=== PATIENT | female | born 1990 | race Caucasian/White ===

== ENCOUNTER 2017-03-22 20:56 | Emergency (ER) | payer OTHER ==
[~2017-03-22] VITALS: Ht 157.5 cm; Wt 86.7 kg
[2017-03-22] MEDS ORDERED: ONDANSETRON ODT 4 MG TAB.RAPDIS ONE (21:01)
[2017-03-22] MEDS ORDERED: 0.9 % SODIUM CHLORIDE 10 ML DISP.SYRIN. IV PRN (21:15)
[2017-03-22] MEDS ORDERED: KETOROLAC 30 MG/ML VIAL. IV ONE (21:30)
[2017-03-22] MEDS ORDERED: IV NORMAL SALINE 1,000ML 1,000 ML IV SCH (21:30)
[2017-03-22] MEDS ORDERED: ONDANSETRON PF 4 MG/2 ML VIAL. IV ONE (21:30)
[2017-03-22] MEDS ORDERED: DIPHENOXYLATE/ATROPINE TABLET. PO ONE (21:30)
[2017-03-22 21:48] LABS: BASO % 0 % (0-3); EOS # 0.1 x10^3/uL (0.0-0.7); EOS % 1 % (0-3); HEMATOCRIT 39.5 % (36.0-47.0); HEMOGLOBIN 13.8 g/dL (12.0-15.5); LYMPH # 3.5 x10^3/uL (1.0-4.8); LYMPH % 37 % (24-48); MEAN CORPUSCULAR HEMOGLOBIN 31 pg (25-35); MEAN CORPUSCULAR HGB CONC 35 g/dL (31-37); MEAN CORPUSCULAR VOLUME 89 fL (79-100); MONO # 0.5 x10^3/uL (0.0-1.1); MONO % 5 % (0-9); NEUT # 5.3 x10^3uL (1.8-7.7); NEUT % 56 % (31-73); PLATELET COUNT 155 x10^3/uL (140-400); RED BLOOD COUNT 4.44 x10^6/uL (3.50-5.40); RED CELL DISTRIBUTION WIDTH 14.9 % (11.5-14.5); WHITE BLOOD COUNT 9.5 x10^3/uL (4.0-11.0)
[2017-03-22 21:59] LABS: BILIRUBIN,URINE NEG (NEG); CLARITY,URINE HAZY; COLOR,URINE YELLOW; GLUCOSE,URINE NEG (NEG)
[2017-03-22 22:00] LABS: BACTERIA,URINE FEW /HPF (0-FEW); NITRITE,URINE NEG (NEG); UROBILINOGEN,URINE 0.2 mg/dL (0.2 mg/dL); WBC,URINE RARE /HPF (0-4)
[2017-03-22] MEDS ORDERED: ONDANSETRON ODT 4 MG TAB.RAPDIS PO ONE (22:00)
[2017-03-22 22:01] LABS: SQUAMOUS EPITHELIAL CELL,UR FEW /LPF; U PREG PATIENT NEGATIVE (NEG)
--- NOTE | 2017-03-22 22:03 | PHYS DOC ---
Past History Past Medical History: Anxiety, Asthma, Bipolar, GERD, Seizure Past Surgical History: No Surgical History Alcohol Use: Occasionally Drug Use: None Adult General Chief Complaint Chief Complaint: NAUSEA/VOMITING/DIARRHEA HPI HPI This is a pleasant 26-year-old female with history of bipolar disorder and anxiety and reflux as well as ovarian cyst who presents with 2 days of nausea vomiting or loose stool. She is a who believes she might be today with a positive test at home who presents with nonbilious nonbloody vomiting sore breasts and loose diarrheal stool. She is also concerned with the pain she is developed in the right lower abdomen. With her history of. Ovarian Pathology she is worried that she have another ovarian cyst causing her symptoms. He denies any trauma, denies relatively country, or recent antibiotic use. Patient does admit she's had low-grade fever to 101.7 taken at home orally she has taken some Tylenol orally to help treat her symptoms. Pain is moderate about 4 or 5 of 10 in the right lower quadrant. This is reminiscent of her prior expenses with her ovarian pathology. Review of Systems Review of Systems Constitutional: sHe has had a low-grade fever. Eyes: Denies change in visual acuity, redness, or eye pain [] HENT: Denies nasal congestion or sore throat [] Respiratory: Denies cough or shortness of breath [] Cardiovascular: No additional information not addressed in HPI [] GI: Legs of abdominal pain nausea without vomiting but she has had diarrhea without blood in her stool. : Denies dysuria or hematuria [] Musculoskeletal: Denies back pain or joint pain [] Integument: Denies rash or skin lesions [] Neurologic: Denies headache, focal weakness or sensory changes [] Endocrine: Denies polyuria or polydipsia [] Current Medications Current Medications Current Medications Medications (Trade) Dose Ordered Sig/Silvana Start Time Stop Time Status Last Admin Dose Admin Diphenoxylate HCl/ Atropine (Lomotil) 2 tab 1X ONCE 03/22/17 21:30 03/22/17 21:31 DC 03/22/17 21:30 2 TAB Ketorolac Tromethamine (Toradol) 30 mg 1X ONCE 03/22/17 21:30 03/22/17 21:31 DC 03/22/17 21:30 30 MG Ondansetron HCl (Zofran Odt) 4 mg 1X ONCE 03/22/17 22:00 03/22/17 22:01 03/22/17 21:31 4 MG Ondansetron HCl (Zofran) 4 mg 1X ONCE 03/22/17 21:30 03/22/17 21:31 DC 03/22/17 21:29 4 MG Sodium Chloride (Normal Saline Flush) 10 ml QSHIFT PRN 03/22/17 21:15 Allergies Allergies Allergies Coded Allergies Type Severity Reaction Last Updated Verified Penicillins Allergy Intermediate 03/22/17 Yes aspirin Allergy Intermediate 03/22/17 Yes Physical Exam Physical Exam Vital signs contained in the chart and recorded they're within normal limits. Constitutional: Well developed, well nourished, no acute distress, non-toxic appearance. [] HENT: Normocephalic, atraumatic, bilateral external ears normal, oropharynx moist, no oral exudates, nose normal. [] Eyes: PERRLA, EOMI, conjunctiva normal, no discharge. [] Neck: Normal range of motion, no tenderness, supple, no stridor. [] Cardiovascular:Heart rate regular rhythm, no murmur [] Lungs & Thorax: Bilateral breath sounds clear to auscultation [] Abdomen: She has mild tenderness to palpation in the right lower quadrant with no voluntary guarding, no rebound, or organomegaly. Skin: Warm, dry, no erythema, no rash. [] Back: No tenderness, no CVA tenderness. [] Extremities: No tenderness, no cyanosis, no clubbing, ROM intact, no edema. [] Neurologic: Alert and oriented X 3, normal motor function, normal sensory function, no focal deficits noted. [] Psychologic: Affect normal, judgement normal, mood normal. [] Current Patient Data Vital Signs Vital Signs Date Time Temp Pulse Resp B/P (MAP) Pulse Ox O2 Delivery O2 Flow Rate FiO2 03/22/17 20:56 98.2 88 16 98 Lab Results Laboratory Tests Test 03/22/17 21:20 White Blood Count 9.5 x10^3/uL (4.0-11.0) Red Blood Count 4.44 x10^6/uL (3.50-5.40) Hemoglobin 13.8 g/dL (12.0-15.5) Hematocrit 39.5 % (36.0-47.0) Mean Corpuscular Volume 89 fL (79-100) Mean Corpuscular Hemoglobin 31 pg (25-35) Mean Corpuscular Hemoglobin Concent 35 g/dL (31-37) Red Cell Distribution Width 14.9 % (11.5-14.5) H Platelet Count 155 x10^3/uL (140-400) Neutrophils (%) (Auto) 56 % (31-73) Lymphocytes (%) (Auto) 37 % (24-48) Monocytes (%) (Auto) 5 % (0-9) Eosinophils (%) (Auto) 1 % (0-3) Basophils (%) (Auto) 0 % (0-3) Neutrophils # (Auto) 5.3 x10^3uL (1.8-7.7) Lymphocytes # (Auto) 3.5 x10^3/uL (1.0-4.8) Monocytes # (Auto) 0.5 x10^3/uL (0.0-1.1) Eosinophils # (Auto) 0.1 x10^3/uL (0.0-0.7) Basophils # (Auto) 0.0 x10^3/uL (0.0-0.2) EKG EKG [] Radiology/Procedures Radiology/Procedures [] IMAGING REPORT Signed PATIENT: GURPREET WELDON ACCOUNT: [id number] : 1990 LOCATION: ER AGE: 26 SEX: F EXAM STATUS: PRE ER ORD. PHYSICIAN: PAT HUBER MD REASON: right lower quadrant abdominal pain PROCEDURE: CT ABD PELV W/ IV CONTRST ONLY CT abdomen and pelvis with contrast Clinical Indication: Right lower quadrant abdominal pain, diarrhea, nausea, fever COMPARISON: None. TECHNIQUE: Multiple contiguous axial images were obtained throughout the abdomen, and pelvis with the use of IV contrast. Axial images were reformatted into coronal and sagittal planes. 75 mL Omnipaque 300 was administered. Abdomen findings: Cholecystectomy. The liver, spleen, pancreas, and adrenal glands are unremarkable. The kidneys are unremarkable. There is no significant mesenteric or retroperitoneal adenopathy identified. There is no evidence of free intraperitoneal fluid or pneumoperitoneum. Visualized portions of the bowel are grossly unremarkable. The appendix is not identified with certainty. No lytic or sclerotic osseous lesions are identified. Pelvis findings: The urinary bladder is decompressed limiting evaluation. Small amount of endometrial canal and pelvic free fluid is likely physiologic given patient's age. Bilateral ovarian small cysts are likely physiologic. No significant iliac or inguinal adenopathy is identified. No lytic or sclerotic osseous lesions are identified. IMPRESSION: 1. Small amount of endometrial canal and pelvic free fluid is likely physiologic given patient's age. 2. Bilateral ovarian small cysts are likely also physiologic. 3. No other acute pathology identified. PQRS Compliance Statement: One or more of the following individualized dose reduction techniques were utilized for this examination: 1. Automated exposure control 2. Adjustment of the mA and/or kV according to patient size 3. Use of iterative reconstruction technique CT Abdomen; CT Pelvis without contrast Electronically signed by: Lars Norman MD (03/22/2017 11:04 PM) [facility] DICTATED AND SIGNED BY: LARS NORMAN MD DATE: 03/22/17 2244 CC: PAT HUBER MD ~ Course & Med Decision Making Course & Med Decision Making Pertinent Labs and Imaging studies reviewed. (See chart for details) Patient has a negative hCG test. Patient is resting comfortably waiting for her CT scan come back.Patient tells me that their symptoms given during CC are improved. We reviewed labs at bedside. Patient feels better with the antiemetics and Toradol given. [] Time is now 10:15 PM patient's CBC is normal patient's H&H is normal patient's white count is normal lipase is normal, patient's urine printed test is negative patient's CMP is normal awaiting CT abdomen and pelvis at this time Laboratory Tests Test 03/22/17 21:20 White Blood Count 9.5 x10^3/uL (4.0-11.0) Red Blood Count 4.44 x10^6/uL (3.50-5.40) Hemoglobin 13.8 g/dL (12.0-15.5) Hematocrit 39.5 % (36.0-47.0) Mean Corpuscular Volume 89 fL (79-100) Mean Corpuscular Hemoglobin 31 pg (25-35) Mean Corpuscular Hemoglobin Concent 35 g/dL (31-37) Red Cell Distribution Width 14.9 % (11.5-14.5) H Platelet Count 155 x10^3/uL (140-400) Neutrophils (%) (Auto) 56 % (31-73) Lymphocytes (%) (Auto) 37 % (24-48) Monocytes (%) (Auto) 5 % (0-9) Eosinophils (%) (Auto) 1 % (0-3) Basophils (%) (Auto) 0 % (0-3) Neutrophils # (Auto) 5.3 x10^3uL (1.8-7.7) Lymphocytes # (Auto) 3.5 x10^3/uL (1.0-4.8) Monocytes # (Auto) 0.5 x10^3/uL (0.0-1.1) Eosinophils # (Auto) 0.1 x10^3/uL (0.0-0.7) Basophils # (Auto) 0.0 x10^3/uL (0.0-0.2) Urine Collection Type Void Urine Color Yellow Urine Clarity Hazy Urine pH 6.0 Urine Specific [place] 1.020 Urine Protein Neg (NEG-TRACE) Urine Glucose (UA) Neg mg/dL (NEG) Urine Ketones (Stick) Neg mg/dL (NEG) Urine Blood Mod (NEG) Urine Nitrite Neg (NEG) Urine Bilirubin Neg (NEG) Urine Urobilinogen Dipstick 0.2 mg/dL (0.2 mg/dL) Urine Leukocyte Esterase Neg (NEG) Urine RBC 3-5 /HPF (0-2) Urine WBC Rare /HPF (0-4) Urine Squamous Epithelial Cells Few /LPF Urine Bacteria Few /HPF (0-FEW) Urine Test Negative (NEG) Sodium Level 138 mmol/L (136-145) Potassium Level 4.1 mmol/L (3.5-5.1) Chloride Level 104 mmol/L (98-107) Carbon Dioxide Level 27 mmol/L (21-32) Anion Gap 7 (6-14) Blood Urea Nitrogen 13 mg/dL (7-20) Creatinine 0.8 mg/dL (0.6-1.0) Estimated GFR (Cockcroft-Gault) 85.4 BUN/Creatinine Ratio 16 (6-20) Glucose Level 99 mg/dL (70-99) Calcium Level 8.6 mg/dL (8.5-10.1) Total Bilirubin 0.3 mg/dL (0.2-1.0) Aspartate Amino Transferase (AST) < 5 U/L (15-37) L Alanine Aminotransferase (ALT) 16 U/L (14-59) Alkaline Phosphatase 60 U/L (46-116) Total Protein 7.4 g/dL (6.4-8.2) Albumin 3.8 g/dL (3.4-5.0) Albumin/Globulin Ratio 1.1 (1.0-1.7) Lipase 205 U/L (73-393) CT scan reveals small ovarian cysts My abdominal pain differential includes but not limited to ectopic , UTI, pyonephritis, cholecystitis, cholelithiasis, pancreatitis, appendicitis, small bowel obstruction, large bowel obstruction, diverticulosis, Diverticulum, intussusception, volvulus, irritable bowel disease, Crohn's or ulcerative colitis, considered upon arrival it is apparent that this patient is having ovarian cyst pain. No evidence of appendicitis at this time. Dragon Disclaimer Dragon Disclaimer This chart was dictated in whole or in part using Voice Recognition software in a busy, high-work load, and often noisy Emergency Department environment. It may contain unintended and wholly unrecognized errors or omissions. Departure Departure: Impression: Primary Impression: Abdominal pain Additional Impression: Ovarian cyst Disposition: 01 HOME, SELF-CARE Condition: IMPROVED Patient Instructions: Abdominal Pain, Ovarian Cyst Additional Instructions: My discharge plan Follow up: In addition patient is asked to followup with their primary doctor, within a week for followup examination and to address patient's ongoing medical conditions. Because patient does not have a regular medical doctor, a local physician Resource Sheet will be provided to establish care primary care. Patient is advised that in the Emergency Department primary complaints are addressed and only in light of known signs and symptoms. Patient should return immediately to the emergency department if new signs and symptoms develop or patient's condition worsens in any way. At time of discharge patient was in stable condition and had verbalized understanding of the discharge instructions. Scripts Ondansetron (ZOFRAN ODT) 8 Mg Tab.rapdis 4 MG PO TID for 5 Days Prov: PAT HUBER MD 03/22/17 Naproxen Sodium (NAPROXEN SODIUM) 275 Mg Tablet 275 MG PO BID for 7 Days, #14 TAB Prov: PAT HUBER MD 03/22/17 Problem Qualifiers PAT HUBER MD Mar 22, 2017 22:03
[2017-03-22 22:04] LABS: ALBUMIN 3.8 g/dL (3.4-5.0); ALBUMIN/GLOBULIN RATIO 1.1 (1.0-1.7); ALK PHOS 60 U/L (46-116); ALT (SGPT) 16 U/L (14-59); ANION GAP 7 (6-14); AST (SGOT) < 5 U/L (15-37); BLOOD UREA NITROGEN 13 mg/dL (7-20); BUN/CREATININE RATIO 16 (6-20); CALCIUM 8.6 mg/dL (8.5-10.1); CARBON DIOXIDE 27 mmol/L (21-32); CHLORIDE 104 mmol/L (98-107); CREATININE 0.8 mg/dL (0.6-1.0); GFR 85.4; GLUCOSE 99 mg/dL (70-99); LIPASE 205 U/L (73-393); POTASSIUM 4.1 mmol/L (3.5-5.1); SODIUM 138 mmol/L (136-145); TOTAL BILIRUBIN 0.3 mg/dL (0.2-1.0); TOTAL PROTEIN 7.4 g/dL (6.4-8.2)
[2017-03-22] MEDS ORDERED: CONTRAST GIVEN MC PRN (22:15)
[2017-03-22] MEDS ORDERED: IOHEXOL 300 MG/ML 75 ML VIAL. IV ONE (22:30)
[2017-03-22 23:10] VITALS: BP 100/60
--- NOTE | 2017-03-22 23:12 | RAD ---
CT abdomen and pelvis with contrast Clinical Indication: Right lower quadrant abdominal pain, diarrhea, nausea, fever COMPARISON: None. TECHNIQUE: Multiple contiguous axial images were obtained throughout the abdomen, and pelvis with the use of IV contrast. Axial images were reformatted into coronal and sagittal planes. 75 mL Omnipaque 300 was administered. Abdomen findings: Cholecystectomy. The liver, spleen, pancreas, and adrenal glands are unremarkable. The kidneys are unremarkable. There is no significant mesenteric or retroperitoneal adenopathy identified. There is no evidence of free intraperitoneal fluid or pneumoperitoneum. Visualized portions of the bowel are grossly unremarkable. The appendix is not identified with certainty. No lytic or sclerotic osseous lesions are identified. Pelvis findings: The urinary bladder is decompressed limiting evaluation. Small amount of endometrial canal and pelvic free fluid is likely physiologic given patient's age. Bilateral ovarian small cysts are likely physiologic. No significant iliac or inguinal adenopathy is identified. No lytic or sclerotic osseous lesions are identified. IMPRESSION: 1. Small amount of endometrial canal and pelvic free fluid is likely physiologic given patient's age. 2. Bilateral ovarian small cysts are likely also physiologic. 3. No other acute pathology identified. PQRS Compliance Statement: One or more of the following individualized dose reduction techniques were utilized for this examination: 1. Automated exposure control 2. Adjustment of the mA and/or kV according to patient size 3. Use of iterative reconstruction technique CT Abdomen; CT Pelvis without contrast Electronically signed by: Lars Bautista MD (03/22/2017 11:04 PM) [facility]
[2017-03-22] MEDS ORDERED: ONDA8TAB12 PO (23:23)
[2017-03-22] MEDS ORDERED: NAPR275T59 PO (23:23)
== END 2017-03-22 23:28 | disposition home or self-care (01) ==
LOC: ER 20:56
DX: N83.201 Unspecified ovarian cyst, right side (principal); J45.909 Unspecified asthma, uncomplicated; K21.9 Gastro-esophageal reflux disease without esophagitis; F31.9 Bipolar disorder, unspecified; Z88.0 Allergy status to penicillin; Z88.6 Allergy status to analgesic agent
CPT/HCPCS: 36415; 74177; 80053; 81001; 81025; 83690; 85025; 96361; 96374; 96375; 99285; J1885; J2405; Q0162; Q9967; J7030

== ENCOUNTER 2017-04-16 15:10 | Emergency (ER) | payer OTHER ==
[~2017-04-16] VITALS: Ht 157.5 cm; Wt 86.2 kg
[~2017-04-16 15:10] MED LIST: NAPR275T59 PO; ONDA8TAB12 PO
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
[2017-04-16] MEDS ORDERED: HYDR-971 PO (16:12)
[2017-04-16] MEDS ORDERED: HYDROcodone/APAP 5/325MG 1 TAB TABLET PO ONE (16:15)
[2017-04-16] MEDS ORDERED: ONDANSETRON ODT 4 MG TAB.RAPDIS ONE (16:15)
[2017-04-16 16:22] VITALS: BP 106/67
[2017-04-16] MEDS ORDERED: ONDANSETRON ODT 4 MG TAB.RAPDIS PO ONE (16:30)
== END 2017-04-16 16:23 | disposition home or self-care (01) ==
LOC: ER 15:10
DX: M54.2 Cervicalgia (principal); S80.812A Abrasion, left lower leg, initial encounter; J45.909 Unspecified asthma, uncomplicated; K21.9 Gastro-esophageal reflux disease without esophagitis; Z88.0 Allergy status to penicillin; Z88.6 Allergy status to analgesic agent; V43.52XA Car driver injured in collision with other type car in traffic accident, initial encounter; Y93.89 Activity, other specified; Y99.8 Other external cause status; Y92.488 Other paved roadways as the place of occurrence of the external cause
CPT/HCPCS: 70450; 72125; 99284; Q0162

== ENCOUNTER 2017-05-07 16:46 | Emergency (ER) | payer OTHER ==
[~2017-05-07] VITALS: Ht 167.6 cm; Wt 108.9 kg
[~2017-05-07 16:46] MED LIST changes: +HYDR-971 PO
--- NOTE | 2017-05-07 16:59 | PHYS DOC ---
Past History Past Medical History: Asthma, Seizure Past Surgical History: Cholecystectomy Alcohol Use: None Drug Use: None Adult General Chief Complaint Chief Complaint: ABDOMINAL PAIN HPI HPI Patient is a 26 year old female who presents with right lower quadrant pain for last 3 days. She states his been getting worse over the last several days. She states she's felt very nauseated but has not vomited. She denies any constipation or diarrhea. She states she's had 4 bowel movements today which is normal for her. She has a history of ovarian cysts but denies any suprapubic pain or discomfort. She denies any vaginal bleeding. She states that she's had 2 diaz rings placed secondary to her ovarian cysts and states this pain is similar to her menstrual cramp pains of which the Diaz rings are supposed to be helping but aren't. She has had her gallbladder removed about 6 months ago. She states when she twists and turns her pain is made worse but even when she is laying still is still there at baseline. Review of Systems Review of Systems Constitutional: Denies fever or chills [] Eyes: Denies change in visual acuity, redness, or eye pain [] HENT: Denies nasal congestion or sore throat [] Respiratory: Denies cough or shortness of breath [] Cardiovascular: No additional information not addressed in HPI [] GI: Positive for abdominal pain,Denies nausea, vomiting, bloody stools or diarrhea [] : Denies dysuria or hematuria [] Musculoskeletal: Denies back pain or joint pain [] Integument: Denies rash or skin lesions [] Neurologic: Denies headache, focal weakness or sensory changes [] Endocrine: Denies polyuria or polydipsia [] Allergies Allergies Allergies Coded Allergies Type Severity Reaction Last Updated Verified Penicillins Allergy Intermediate 04/16/17 Yes aspirin Allergy Intermediate 03/22/17 Yes Physical Exam Physical Exam Constitutional: Well developed, well nourished, no acute distress, non-toxic appearance. [] HENT: Normocephalic, atraumatic, bilateral external ears normal, oropharynx moist, no oral exudates, nose normal. [] Eyes: PERRLA, EOMI, conjunctiva normal, no discharge. [] Neck: Normal range of motion, no tenderness, supple, no stridor. [] Cardiovascular:Heart rate regular rhythm, no murmur [] Lungs & Thorax: Bilateral breath sounds clear to auscultation [] Abdomen: Bowel sounds hypoactive, tender to palpation right lower quadrant with voluntary guarding, no masses, no pulsatile masses. [] Skin: Warm, dry, no erythema, no rash. [] Back: No tenderness, no CVA tenderness. [] Extremities: No tenderness, no cyanosis, no clubbing, ROM intact, no edema. [] Neurologic: Alert and oriented X 3, normal motor function, normal sensory function, no focal deficits noted. [] Psychologic: Affect normal, judgement normal, mood normal. [] EKG EKG [] Radiology/Procedures Radiology/Procedures [CT abdomen: No acute intra-abdominal process. Pelvic US: small amount of free fluid in pelvis, good blood flow to both ovaries. ][] Impressions: Abdominal pain Course & Med Decision Making Course & Med Decision Making Pertinent Labs and Imaging studies reviewed. (See chart for details) Patient presents with abdominal pain and right lower quadrant. CT scan, ultrasound and labs are pending at this time. Patient is being checked out to Dr. Pete for final disposition. Patient improved with treatment. Imaging and labs reviewed and reassuring. We will treat supportively with PCP/SR. MEDIA MANAGER follow-up. Return precautions reviewed. Dragon Disclaimer Dragon Disclaimer This chart was dictated in whole or in part using Voice Recognition software in a busy, high-work load, and often noisy Emergency Department environment. It may contain unintended and wholly unrecognized errors or omissions. Departure Departure: Impression: Primary Impression: Abdominal pain Disposition: HOME, SELF-CARE Condition: GOOD Referrals: WILLIE MANRIQUEZ MD (PCP) RATNA HANKS MD May 07, 2017 16:59 ARF PETE DO May 08, 2017 03:48
[2017-05-07] MEDS ORDERED: MORPHINE SULFATE 2 MG/ML DISP.SYRIN. IV/SQ PRN (17:15)
[2017-05-07] MEDS ORDERED: ONDANSETRON PF 4 MG/2 ML VIAL. IV ONE (17:30)
[2017-05-07 17:42] LABS: BASO % 0 % (0-3); EOS # 0.1 x10^3/uL (0.0-0.7); EOS % 1 % (0-3); HEMATOCRIT 39.1 % (36.0-47.0); HEMOGLOBIN 13.5 g/dL (12.0-15.5); LYMPH # 3.4 x10^3/uL (1.0-4.8); LYMPH % 32 % (24-48); MEAN CORPUSCULAR HEMOGLOBIN 31 pg (25-35); MEAN CORPUSCULAR HGB CONC 35 g/dL (31-37); MEAN CORPUSCULAR VOLUME 90 fL (79-100); MONO # 0.6 x10^3/uL (0.0-1.1); MONO % 6 % (0-9); NEUT # 6.5 x10^3uL (1.8-7.7); NEUT % 61 % (31-73); PLATELET COUNT 178 x10^3/uL (140-400); RED BLOOD COUNT 4.36 x10^6/uL (3.50-5.40); RED CELL DISTRIBUTION WIDTH 14.8 % (11.5-14.5); WHITE BLOOD COUNT 10.7 x10^3/uL (4.0-11.0)
[2017-05-07] MEDS ORDERED: IOHEXOL 300 MG/ML 75 ML VIAL. IV ONE (17:45)
[2017-05-07 17:51] LABS: PREG TEST PT QUAL NEGATIVE (NEG)
[2017-05-07 17:54] LABS: ALBUMIN 4.1 g/dL (3.4-5.0); CREATININE 0.8 mg/dL (0.6-1.0); DIRECT BILIRUBIN 0.1 mg/dL (0.0-0.2); GFR 85.4; POTASSIUM 3.8 mmol/L (3.5-5.1); TOTAL BILIRUBIN 0.4 mg/dL (0.2-1.0); TOTAL PROTEIN 7.4 g/dL (6.4-8.2)
[2017-05-07] MEDS ORDERED: IV NORMAL SALINE 1,000ML 1,000 ML IV ONE (18:00)
[2017-05-07 18:08] VITALS: BP 122/75
[2017-05-07 18:09] LABS: AMPHETAMINE/METHAMPHETAMINE NEG (NEG); BARBITURATES NEG (NEG); BENZODIAZEPINES NEG (NEG); CANNABINOIDS NEG (NEG); COCAINE NEG (NEG); METHADONE NEG (NEG); OPIATES NEG (NEG); PHENCYCLIDINE NEG (NEG)
[2017-05-07 18:19] LABS: BILIRUBIN,URINE NEG (NEG); CLARITY,URINE HAZY; COLOR,URINE YELLOW; GLUCOSE,URINE NEG (NEG); NITRITE,URINE NEG (NEG); UROBILINOGEN,URINE 0.2 mg/dL (0.2 mg/dL)
[2017-05-07 18:20] LABS: BACTERIA,URINE 0 /HPF (0-FEW); SQUAMOUS EPITHELIAL CELL,UR MOD /LPF
--- NOTE | 2017-05-07 18:34 | RAD ---
PQRS Compliance Statement: One or more of the following individualized dose reduction techniques were utilized for this examination: 1. Automated exposure control 2. Adjustment of the mA and/or kV according to patient size 3. Use of iterative reconstruction technique CT ABD PELV W/ IV CONTRST ONLY Clinical Indication: RLQ abdominal pain, hx cholecystectomy Comparison: CT abdomen and pelvis with contrast March 22, 2017. Technique: Helical CT imaging of the abdomen and pelvis is performed after 75 cc Omnipaque 300 IV contrast. Oral contrast not given. Findings: Dome of the liver is excluded. Lung bases clear. Cardiac size normal. Cholecystectomy. Liver, spleen, pancreas, adrenal glands, abdominal aorta, and kidneys are normal. Stomach unremarkable. No dilated small bowel. The appendix is normal. Descending colon is decompressed, limiting evaluation. No colon wall thickening is identified. No abdominal adenopathy or free fluid. There are bilateral ovarian functional cysts. Uterus unremarkable. Question tiny nabothian cysts. There is a contraceptive ring in the vagina. The urinary bladder is normal. Mild pelvic free fluid. No acute bone abnormality. IMPRESSION: 1. The appendix is normal. 2. Bilateral ovary functional cysts. Mild pelvic free fluid. Findings probably physiologic. Electronically signed by: Brennan Ramirez MD (05/07/2017 6:31 PM) [facility]
--- NOTE | 2017-05-07 19:09 | RAD ---
US PELVIS W/TV Clinical Indication: [id number] RLQ pain x's 3 day Comparison: CT abdomen and pelvis with contrast earlier same day. TECHNIQUE: Real-time ultrasound imaging of the pelvis using transabdominal and transvaginal window is performed. Findings: There is pelvic free fluid. The uterus measures 7.2 x 5.2 x 3.8 cm. The uterus is retroverted. No focal abnormality. Nabothian cysts are seen. The endometrial stripe is normal measuring 7 mm. Normal blood flow in the ovaries. There are ovarian follicles. There is dominant right ovary functional cyst measuring up to 2.5 cm. IMPRESSION: 1. Pelvic free fluid is probably physiologic. 2. Nabothian cysts. 3. Normal blood flow in the ovaries. Electronically signed by: Brennan Ramirez MD (05/07/2017 7:06 PM) [facility]
== END 2017-05-07 19:52 | disposition home or self-care (01) ==
LOC: ER 16:46
DX: R10.31 Right lower quadrant pain (principal); R11.0 Nausea; J45.909 Unspecified asthma, uncomplicated; Z90.49 Acquired absence of other specified parts of digestive tract; Z88.0 Allergy status to penicillin; Z88.6 Allergy status to analgesic agent
CPT/HCPCS: 36415; 74177; 76830; 76856; 80048; 80076; 80307; 81001; 83690; 84703; 85025; 96361; 96374; 96375; 99285; J2270; J2405; Q9967; G0479; J7030

== ENCOUNTER 2017-06-10 14:44 | Emergency (ER) | payer OTHER ==
[~2017-06-10] VITALS: Ht 175.3 cm; Wt 102.1 kg
[2017-06-10] MEDS ORDERED: ACETAMINOPHEN 500 MG TABLET PO ONE (15:30)
[2017-06-10] MEDS ORDERED: CEPH-264 PO (15:34)
[2017-06-10] MEDS ORDERED: percogesic PO (15:34)
--- NOTE | 2017-06-10 15:35 | PHYS DOC ---
Past History Past Medical History: Seizure Past Surgical History: Cholecystectomy Smoking: Greater than 1 pack/day Alcohol Use: None Drug Use: None Adult General Chief Complaint Chief Complaint: DENTAL PROBLEM HPI HPI 26-year-old female patient with history of smoking complaining of left lower jaw and tooth pain for the last 1 week that gradually getting force. Patient said the pain is sharp and constant and getting force with eating and drinking and talking. Patient denies fever and chills, recent broken tooth, nausea vomiting. Patient states her last period was less than 1 month ago but she is not sure about . Patient rated her pain 9/10. Review of Systems Review of Systems Constitutional: Denies fever or chills [] Eyes: Denies change in visual acuity, redness, or eye pain [] HENT: Denies nasal congestion or sore throat , reports dental pain[] Respiratory: Denies cough or shortness of breath [] Cardiovascular: No additional information not addressed in HPI [] GI: Denies abdominal pain, nausea, vomiting, bloody stools or diarrhea [] : Denies dysuria or hematuria [] Musculoskeletal: Denies back pain or joint pain [] Integument: Denies rash or skin lesions [] Neurologic: Denies headache, focal weakness or sensory changes [] Endocrine: Denies polyuria or polydipsia [] All other systems were reviewed and found to be within normal limits, except as documented in this note. Current Medications Current Medications Current Medications Medications (Trade) Dose Ordered Sig/Silvana Start Time Stop Time Status Last Admin Dose Admin Acetaminophen (Tylenol) 1,000 mg 1X ONCE 06/10/17 15:30 06/10/17 15:31 Allergies Allergies Allergies Coded Allergies Type Severity Reaction Last Updated Verified Penicillins Allergy Intermediate 04/16/17 Yes aspirin Allergy Intermediate 03/22/17 Yes Physical Exam Physical Exam Constitutional: Well nourished, mild distress, non-toxic appearance. [] HENT: Normocephalic, atraumatic, bilateral external ears normal, oropharynx moist, no oral exudates, nose normal, dental cavity and mild e tenderness in left lower molar #3 without abscess[] Eyes: PERRLA, EOMI, conjunctiva normal, no discharge. [] Neck: Normal range of motion, no tenderness, supple, no stridor. [] Cardiovascular:Heart rate regular rhythm, no murmur [] Lungs & Thorax: Bilateral breath sounds clear to auscultation [] Current Patient Data Vital Signs Vital Signs Date Time Temp Pulse Resp B/P (MAP) Pulse Ox O2 Delivery O2 Flow Rate FiO2 06/10/17 14:50 98.1 85 18 97 Room Air EKG EKG [] Radiology/Procedures Radiology/Procedures [] Course & Med Decision Making Course & Med Decision Making Elevation of patient in ER showed 26-year-old female patient presented to ER with complaining of dental pain for 1 week. Patient had dental cavity and marked tenderness without abscess. Patient states she is not sure about and her last period was less than 1 month ago. Patient treated with Tylenol in ER and plan to discharge home with prescription of Cephalexin and instruction to follow with her dentist. Dragon Disclaimer Dragon Disclaimer This electronic medical record was generated, in whole or in part, using a voice recognition dictation system. Departure Departure: Impression: Primary Impression: Dentalgia Additional Impressions: Dental caries Tobacco abuse counseling Disposition: HOME, SELF-CARE Condition: IMPROVED Referrals: WILLIE MANRIQUEZ MD (PCP) Patient Instructions: Dental Caries Additional Instructions: Follow-up with a dentist in 3-5 days Quit smoking Scripts [percogesic] No Conflict Check TAB PO BID Y for PAIN, #10 Prov: JOEY ROGERS MD 06/10/17 Cephalexin (KEFLEX) 500 Mg Capsule 1 CAP PO TID, #21 CAP Prov: JOEY ROGERS MD 06/10/17 Problem Qualifiers JOEY ROGERS MD Jun 10, 2017 15:35
[2017-06-10 15:40] VITALS: BP 106/60
== END 2017-06-10 15:43 | disposition home or self-care (01) ==
LOC: ER 14:44
DX: K02.9 Dental caries, unspecified (principal); F17.200 Nicotine dependence, unspecified, uncomplicated; Z88.0 Allergy status to penicillin; Z88.6 Allergy status to analgesic agent
CPT/HCPCS: 99283

== ENCOUNTER 2017-07-09 16:01 | Emergency (ER) | payer OTHER ==
[~2017-07-09] VITALS: Ht 157.5 cm; Wt 86.2 kg
[~2017-07-09 16:01] MED LIST changes: +CEPH-264 PO; +percogesic PO
[2017-07-09 16:10] VITALS: BP 114/70
[2017-07-09] MEDS ORDERED: LIDOCAINE 2% VISCOUS 15 ML SOLUTION. SWSW ONE (16:45)
--- NOTE | 2017-07-09 16:50 | PHYS DOC ---
Past History Past Medical History: COPD Past Surgical History: Cholecystectomy Smoking: Greater than 1 pack/day Alcohol Use: None Drug Use: Marijuana Adult General Chief Complaint Chief Complaint: SORE THROAT [facility] 26-year-old female patient complaining of sore throat since yesterday associated with fever up to 102 and nasal congestion and mild cough. Patient complaining of severe pain in her throat without problem with breathing. Review of Systems Review of Systems Constitutional: Reports fever and chills Eyes: Denies change in visual acuity, redness, or eye pain [] HENT: Reports nasal congestion or sore throat[] Respiratory: Reports cough and shortness of breath] Cardiovascular: No additional information not addressed in HPI [] GI: Denies abdominal pain, nausea, vomiting, bloody stools or diarrhea [] : Denies dysuria or hematuria [] Musculoskeletal: Denies back pain or joint pain [] Integument: Denies rash or skin lesions [] Neurologic: Denies headache, focal weakness or sensory changes [] Endocrine: Denies polyuria or polydipsia [] All other systems were reviewed and found to be within normal limits, except as documented in this note. Current Medications Current Medications Current Medications Medications (Trade) Dose Ordered Sig/Silvana Start Time Stop Time Status Last Admin Dose Admin Lidocaine HCl 15 ml 1X ONCE 07/09/17 16:45 07/09/17 16:46 DC Allergies Allergies Allergies Coded Allergies Type Severity Reaction Last Updated Verified Penicillins Allergy Intermediate 04/16/17 Yes aspirin Allergy Intermediate 03/22/17 Yes Physical Exam Physical Exam Constitutional: Well developed, well nourished, mild distress, non-toxic appearance, anxious. [] HENT: Normocephalic, atraumatic, bilateral external ears normal, oropharynx moist, right tonsillar edema and erythema, no oral exudates, nose normal. [] Eyes: PERRLA, EOMI, conjunctiva normal, no discharge. [] Neck: Normal range of motion, no tenderness, supple, no stridor. [] Cardiovascular:Heart rate regular rhythm, no murmur [] Lungs & Thorax: Bilateral breath sounds clear to auscultation [] Abdomen: Bowel sounds normal, soft, no tenderness, no masses, no pulsatile masses. [] Skin: Warm, dry, no erythema, no rash. [] Back: No tenderness, no CVA tenderness. [] Extremities: No tenderness, no cyanosis, no clubbing, ROM intact, no edema. [] Neurologic: Alert and oriented X 3, normal motor function, normal sensory function, no focal deficits noted. [] Psychologic: Affect normal, judgement normal, mood normal. [] Current Patient Data Vital Signs Vital Signs Date Time Temp Pulse Resp B/P (MAP) Pulse Ox O2 Delivery O2 Flow Rate FiO2 07/09/17 16:10 98.4 81 18 98 Room Air EKG EKG [] Radiology/Procedures Radiology/Procedures [] Course & Med Decision Making Course & Med Decision Making Pertinent Labs pending. Patient care transferred to Dr. Marlow at 1800 Patient is a 26-year-old female signed out to me at [address] Rogers. Patient reportedly has had sore throat fever and cough for the past 2 days and was signed out to me as strep and influenza swabs had been ordered and were pending. A KARRI GARRISON arrived to the emergency department and my time was occupied for an extended period. After caring for trauma room I was notified by RN that the patient refused swabs and was no longer in the exam room. Patient apparently left without being fully evaluated and she did have a prolonged ED course due to extremely high patient volume/acuity. Impression: A reported patient with symptoms of possible pharyngitis and influenza left without being seen. Dragon Disclaimer Dragon Disclaimer This electronic medical record was generated, in whole or in part, using a voice recognition dictation system. Departure Referrals: WILLIE MANRIQUEZ MD (PCP) Departure Departure: Referrals: WILLIE MANRIQUEZ MD (PCP) JOEY ROGERS MD Jul 09, 2017 16:50 JOSE MARLOW DO Jul 09, 2017 21:01
== END 2017-07-09 20:05 | disposition left against medical advice (07) ==
LOC: ER 16:01
DX: J02.9 Acute pharyngitis, unspecified (principal); R50.9 Fever, unspecified; R09.81 Nasal congestion; J44.9 Chronic obstructive pulmonary disease, unspecified; F17.210 Nicotine dependence, cigarettes, uncomplicated; F12.10 Cannabis abuse, uncomplicated; Z90.49 Acquired absence of other specified parts of digestive tract; Z88.0 Allergy status to penicillin; Z88.6 Allergy status to analgesic agent
CPT/HCPCS: 87070; 87880; 99283

== ENCOUNTER 2017-07-12 16:59 | Emergency (ER) | payer OTHER ==
[~2017-07-12] VITALS: Ht 157.5 cm; Wt 86.7 kg
[2017-07-12 17:11] VITALS: BP 114/70
[2017-07-12] MEDS ORDERED: IBUPROFEN 800 MG TABLET. PO ONE (17:30)
[2017-07-12] MEDS ORDERED: HYDR-971 PO (17:37)
[2017-07-12] MEDS ORDERED: CEPH-264 PO (17:37)
[2017-07-12] MEDS ORDERED: IBUP800T19 PO (17:37)
--- NOTE | 2017-07-12 17:37 | PHYS DOC ---
Past History Past Medical History: COPD Past Surgical History: Cholecystectomy Smoking: Greater than 1 pack/day Alcohol Use: None Drug Use: Marijuana Adult General Chief Complaint Chief Complaint: EARACHE/EAR PAIN HPI HPI 26-year-old female patient complaining of sore throat and fever up to 102 and earache for the last several days that gradually getting worse. Patient was seen in this emergency room on 07/09/17 but because of long time waiting time left before having any treatment. She was told that her strep test was negative. She denies fever for the last 3 days but complaining of increasing pain in her ear. Review of Systems Review of Systems Constitutional: Reports fever Eyes: Denies change in visual acuity, redness, or eye pain [] HENT: Port nasal congestion and sore throat and earache[] Respiratory: Denies shortness of breath [] Cardiovascular: No additional information not addressed in HPI [] GI: Denies abdominal pain, nausea, vomiting, bloody stools or diarrhea [] : Denies dysuria or hematuria [] Musculoskeletal: Denies back pain or joint pain [] Integument: Denies rash or skin lesions [] Neurologic: Denies headache, focal weakness or sensory changes [] Endocrine: Denies polyuria or polydipsia [] All other systems were reviewed and found to be within normal limits, except as documented in this note. Current Medications Current Medications Current Medications Medications (Trade) Dose Ordered Sig/Silvana Start Time Stop Time Status Last Admin Dose Admin Ibuprofen (Motrin) 800 mg 1X ONCE 07/12/17 17:30 07/12/17 17:31 UNV Allergies Allergies Allergies Coded Allergies Type Severity Reaction Last Updated Verified Penicillins Allergy Intermediate 04/16/17 Yes aspirin Allergy Intermediate 03/22/17 Yes Physical Exam Physical Exam Constitutional: Well developed, well nourished, mild distress, non-toxic appearance, afebrile. [] HENT: Normocephalic, atraumatic, right tympanic membrane erythema and tenderness , bilateral pharyngeal erythema and right pharyngeal exudate, oropharynx moist, nose normal. [] Eyes: PERRLA, EOMI, conjunctiva normal, no discharge. [] Neck: Normal range of motion, no tenderness, supple, no stridor. [] Cardiovascular:Heart rate regular rhythm, no murmur [] Lungs & Thorax: Bilateral breath sounds clear to auscultation [] Abdomen: Bowel sounds normal, soft, no tenderness, no masses, no pulsatile masses. [] Skin: Warm, dry, no erythema, no rash. [] Back: No tenderness, no CVA tenderness. [] Extremities: No tenderness, no cyanosis, no clubbing, ROM intact, no edema. [] Neurologic: Alert and oriented X 3, normal motor function, normal sensory function, no focal deficits noted. [] Psychologic: Affect normal, judgement normal, mood normal. [] EKG EKG [] Radiology/Procedures Radiology/Procedures [] Course & Med Decision Making Course & Med Decision Making Evaluation of patient in ER showed 26-year-old female patient with complaining of sore throat and earache with differential exudates. Patient seen in this emergency room 3 days ago and had negative for sepsis and did not want to have another strep test. She did not want to have Rocephin IM in ER. Plan discharge patient home with diagnosis of acute otitis and acute pharyngitis. Dragon Disclaimer Dragon Disclaimer This electronic medical record was generated, in whole or in part, using a voice recognition dictation system. Departure Departure: Impression: Primary Impression: Acute otitis media Additional Impression: Acute pharyngitis Disposition: HOME, SELF-CARE (At 1735) Condition: IMPROVED Referrals: WILLIE MANRIQUEZ MD (PCP) Patient Instructions: Otitis Media, Adult, Sore Throat Additional Instructions: Drink plenty of liquids Follow-up with your primary care physician in 3-5 days Return to ER if not getting better Scripts Ibuprofen (IBUPROFEN) 800 Mg Tablet 1 TAB PO TID, #30 TAB Prov: JOEY ROGERS MD 07/12/17 Cephalexin (KEFLEX) 500 Mg Capsule 1 CAP PO TID, #30 CAP Prov: JOEY ROGERS MD 07/12/17 Hydrocodone Bit/Acetaminophen (NORCO 5-325 TABLET) 1 Each Tablet 1 TAB PO TID, #12 TAB Prov: JOEY ROGERS MD 07/12/17 Problem Qualifiers JOEY ROGERS MD Jul 12, 2017 17:37
== END 2017-07-12 17:47 | disposition home or self-care (01) ==
LOC: ER 16:59
DX: H66.93 Otitis media, unspecified, bilateral (principal); J02.9 Acute pharyngitis, unspecified; J44.9 Chronic obstructive pulmonary disease, unspecified; F17.200 Nicotine dependence, unspecified, uncomplicated; F12.10 Cannabis abuse, uncomplicated; Z88.0 Allergy status to penicillin; Z88.6 Allergy status to analgesic agent
CPT/HCPCS: 99283

== ENCOUNTER 2017-07-19 23:23 | Emergency (ER) | payer OTHER ==
[~2017-07-19] VITALS: Ht 157.5 cm; Wt 86.7 kg
[~2017-07-19 23:23] MED LIST changes: +IBUP800T19 PO
[2017-07-19 23:26] VITALS: BP 113/60
--- NOTE | 2017-07-20 00:06 | PHYS DOC ---
Past History Past Medical History: No Pertinent History Past Surgical History: Cholecystectomy Smoking: Cigarettes, Greater than 1 pack/day Alcohol Use: None Drug Use: Marijuana Adult General Chief Complaint Chief Complaint: SORE THROAT HPI HPI Patient is a 26 year old female who presents with sore throat. She states the sore throat started in mid June. She has been here twice and had a negative strep culture done. She is on keflex. She states that the throat still hurts. She had a fever initially but none now. No flu vaccine. No travel. Little cough. No vomiting or diarrhea. No rash. Review of Systems Review of Systems Constitutional: Denies fever or chills Eyes: Denies change in visual acuity, redness, or eye pain HENT: Denies nasal congestion; POS sore throat Respiratory: Little cough but no shortness of breath Cardiovascular: No chest pain GI: Denies abdominal pain, nausea, vomiting, bloody stools or diarrhea : Denies dysuria or hematuria Musculoskeletal: Denies back pain or joint pain Integument: Denies rash or skin lesions Neurologic: Denies headache, focal weakness or sensory changes All other systems were reviewed and found to be within normal limits, except as documented in this note. Allergies Allergies Allergies Coded Allergies Type Severity Reaction Last Updated Verified Penicillins Allergy Intermediate 04/16/17 Yes aspirin Allergy Intermediate 03/22/17 Yes Physical Exam Physical Exam Constitutional: Well developed, well nourished, no acute distress, non-toxic appearance. HENT: Normocephalic, atraumatic, tympanic membranes are clear bilaterally bilateral external ears normal, oropharynx moist, hyperemia to posterior pharynx ; no oral exudates or lesions, nose normal. Eyes: PERRLA, EOMI, conjunctiva normal, no discharge. Neck: Normal range of motion, no tenderness, supple, no stridor. Cardiovascular:Heart rate regular rhythm, no murmur Lungs & Thorax: Bilateral breath sounds clear to auscultation Abdomen: Bowel sounds normal, soft, no tenderness, no masses, no pulsatile masses. Skin: Warm, dry, no erythema, no rash. Back: No tenderness, no CVA tenderness. Extremities: No tenderness, no cyanosis, no clubbing, ROM intact, no edema. Neurologic: Alert and oriented X 3, normal motor function, normal sensory function, no focal deficits noted. Psychologic: Affect normal, judgement normal, mood normal. Current Patient Data Vital Signs 113/60, 75, sat 100%, RR 20, T 97.7 Lab Results Laboratory Tests Test 07/19/17 23:55 Influenza Type A (Rapid) Negative (NEGATIVE) Influenza Type B (Rapid) Negative (NEGATIVE) Course & Med Decision Making Course & Med Decision Making Evaluated patient and reviewed recent visits. Influenza sent and monospot. Her throat has the appearance of monilial infection. At 0110 AM:Influenza is negative but lab having difficulty running the monospot due to a reagent difficulty. Will discharge patient with followup. Will place on diflucan (dosed here). If symptoms persist she needs follow up with ENT. I have spoken with the patient and/or caregivers. I have explained the patient' s condition, diagnosis and treatment plan based on the information available to me at this time. I have answered the patient's and/or caregiver's questions and addressed any concerns. The patient and/or caregivers have as good an understanding of the patient's diagnosis, condition and treatment plan as can be expected at this point. The patient's condition is stable and appropriate for discharge from the emergency department. The patient will pursue further outpatient evaluation with the primary care physician or other designated or consulting physician as outlined in the discharge instructions. The patient and/or caregivers are agreeable to this plan of care and follow-up instructions have been explained in detail. The patient and/or caregivers have received these instructions in written format and have expressed an understanding of the discharge instructions. The patient and/or caregivers are aware that any significant change in condition or worsening of symptoms should prompt an immediate return to this or the closest emergency department or a call to 911. Dami Disclaimer Dragon Disclaimer This electronic medical record was generated, in whole or in part, using a voice recognition dictation system. Departure Departure: Impression: Primary Impression: Sore throat Additional Impression: Moniliasis of mouth Disposition: HOME, SELF-CARE Condition: STABLE Referrals: WILLIE MANRIQUEZ MD (PCP) Patient Instructions: Sore Throat Additional Instructions: YOU HAVE HAD COMPLAINTS FOR APPROX ONE MONTH. YOUR STREP SCREEN AND CULTURE WERE NEGATIVE, YOUR INFLUENZA NEGATIVE. THE MONOSPOT IS PENDING (LAB IS HAVING TROUBLE WITH THE MACHINE). YOU MAY HAVE A YEAST INFECTION IN YOUR THROAT YOU HAVE BEEN ON ANTIBIOTICS. YOU WERE A DOSE OF YEAST MEDICATION HERE TO SEE IF THAT HELPS. IF YOUR SYMPTOMS PERSIST YOU NEED EVALUATION BY AN ENT. CALL [facility] REGARDING AN ENT APPOINTMENT Problem Qualifiers OLAF MANN MD Jul 20, 2017 00:06
[2017-07-20 00:55] LABS: INFLUENZA A PATIENT NEGATIVE (NEGATIVE); INFLUENZA B PATIENT NEGATIVE (NEGATIVE)
[2017-07-20] MEDS ORDERED: FLUCONAZOLE 100 MG TABLET. ONE (01:27)
[2017-07-20 01:30] LABS: MONONUCLEOSIS PATIENT NEGATIVE (NEGATIVE)
[2017-07-20] MEDS ORDERED: FLUCONAZOLE 100 MG TABLET. PO ONE (01:30)
== END 2017-07-20 01:30 | disposition home or self-care (01) ==
LOC: ER 23:23
DX: J02.9 Acute pharyngitis, unspecified (principal); B37.0 Candidal stomatitis; F17.210 Nicotine dependence, cigarettes, uncomplicated; F12.10 Cannabis abuse, uncomplicated; Z88.6 Allergy status to analgesic agent; Z88.0 Allergy status to penicillin
CPT/HCPCS: 86308; 87804; 99284

== ENCOUNTER 2017-07-29 19:33 | Emergency (ER) | payer OTHER ==
[~2017-07-29] VITALS: Ht 157.5 cm; Wt 82.1 kg
--- NOTE | 2017-07-29 19:50 | ED.ADGEN ---
Past History Past Medical History: No Pertinent History Past Surgical History: Cholecystectomy Smoking: Cigarettes, Greater than 1 pack/day Alcohol Use: None Drug Use: Marijuana Adult General Chief Complaint Chief Complaint " I ve been nauseate... nausea and some vomiting.. not right since .. 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 Pt. has been courses of antibiotics for ENT complaints. No recent travel. 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 Pt. states she feel some nausea like . Pt. has been gravid x 5, 3 live births and 2 miscarries. No hx. of bad food. No hx immunosuppression. Pt. normally follows with Dr. Quinonez. Reportedly prior flu and strept. are negative. Review of Systems Review of Systems Constitutional: Denies fever or chills [] Eyes: Denies change in visual acuity, redness, or eye pain [] HENT: Hx of nasal congestion or sore throat [] Respiratory: Denies cough or shortness of breath [] Cardiovascular: No additional information not addressed in HPI [] GI: Hx of , nausea, vomiting,. Denies bloody stools or diarrhea [] : Denies dysuria or hematuria [] Musculoskeletal: Denies back pain or joint pain [] Integument: Denies rash or skin lesions [] Neurologic: Denies headache, focal weakness or sensory changes [] Endocrine: Denies polyuria or polydipsia [] All other systems were reviewed and found to be within normal limits, except as documented in this note. Family History Family History Non-contributory Current Medications Current Medications Current Medications Medications (Trade) Dose Ordered Sig/Silvana Start Time Stop Time Status Last Admin Dose Admin Famotidine (Pepcid Vial) 20 mg 1X ONCE 07/29/17 20:15 07/29/17 20:16 DC 07/29/17 20:21 20 MG Lactated Ringer's 1,000 ml @ 1,000 mls/hr Q1H 07/29/17 20:00 Ondansetron HCl (Zofran) 8 mg 1X ONCE 07/29/17 20:15 07/29/17 20:16 DC 07/29/17 20:21 8 MG Sodium Chloride 1,000 ml @ 1,000 mls/hr 1X ONCE 07/29/17 21:00 07/29/17 21:59 DC 07/29/17 20:10 1,000 MLS/HR Allergies Allergies Allergies Coded Allergies Type Severity Reaction Last Updated Verified Penicillins Allergy Intermediate 04/16/17 Yes aspirin Allergy Intermediate 03/22/17 Yes Physical Exam Physical Exam Constitutional: , no acute distress, non-toxic appearance. [] HENT: Normocephalic, atraumatic, bilateral external ears normal, oropharynx moist, min. pharyngeal injection, no oral exudates, nose normal. [] Eyes: PERRLA, EOMI, conjunctiva normal, no discharge. [] Neck: Normal range of motion, no tenderness, supple, no stridor. [] Cardiovascular:Heart rate regular rhythm, no murmur [] Lungs & Thorax: Bilateral breath sounds equal scattered wheezes on auscultation [] Abdomen: Bowel sounds normal, soft, no tenderness, no masses, no pulsatile masses. [] Old surgery scars. Skin: Warm, dry, no erythema, no rash. [] Back: No tenderness, no CVA tenderness. [] Extremities: No tenderness, no cyanosis, no clubbing, ROM intact, no edema. [] Neurologic: Alert and oriented X 3, normal motor function, normal sensory function, no focal deficits noted. [] Psychologic: Affect normal, judgement normal, mood normal. [] Current Patient Data Vital Signs Vital Signs Date Time Temp Pulse Resp B/P (MAP) Pulse Ox O2 Delivery O2 Flow Rate FiO2 07/29/17 19:44 98.2 84 16 100 Room Air Lab Results Laboratory Tests Test 07/29/17 20:10 07/29/17 20:15 White Blood Count 9.2 x10^3/uL (4.0-11.0) Red Blood Count 4.06 x10^6/uL (3.50-5.40) Hemoglobin 12.6 g/dL (12.0-15.5) Hematocrit 36.4 % (36.0-47.0) Mean Corpuscular Volume 90 fL (79-100) Mean Corpuscular Hemoglobin 31 pg (25-35) Mean Corpuscular Hemoglobin Concent 35 g/dL (31-37) Red Cell Distribution Width 15.1 % (11.5-14.5) H Platelet Count 202 x10^3/uL (140-400) Neutrophils (%) (Auto) 70 % (31-73) Lymphocytes (%) (Auto) 24 % (24-48) Monocytes (%) (Auto) 5 % (0-9) Eosinophils (%) (Auto) 1 % (0-3) Basophils (%) (Auto) 0 % (0-3) Neutrophils # (Auto) 6.5 x10^3uL (1.8-7.7) Lymphocytes # (Auto) 2.2 x10^3/uL (1.0-4.8) Monocytes # (Auto) 0.5 x10^3/uL (0.0-1.1) Eosinophils # (Auto) 0.1 x10^3/uL (0.0-0.7) Basophils # (Auto) 0.0 x10^3/uL (0.0-0.2) Maternal Serum HCG Beta Subunit < 1 mIU/mL (0-6) Sodium Level 141 mmol/L (136-145) Potassium Level 3.9 mmol/L (3.5-5.1) Chloride Level 104 mmol/L (98-107) Carbon Dioxide Level 27 mmol/L (21-32) Anion Gap 10 (6-14) Blood Urea Nitrogen 9 mg/dL (7-20) Creatinine 0.8 mg/dL (0.6-1.0) Estimated GFR (Cockcroft-Gault) 85.4 Glucose Level 90 mg/dL (70-99) Calcium Level 9.0 mg/dL (8.5-10.1) Total Bilirubin 0.2 mg/dL (0.2-1.0) Direct Bilirubin 0.1 mg/dL (0.0-0.2) Aspartate Amino Transferase (AST) 11 U/L (15-37) L Alanine Aminotransferase (ALT) 14 U/L (14-59) Alkaline Phosphatase 70 U/L (46-116) Troponin I Quantitative < 0.017 ng/mL (0-0.055) Total Protein 7.4 g/dL (6.4-8.2) Albumin 3.5 g/dL (3.4-5.0) Lipase 174 U/L (73-393) Urine Collection Type Unknown Urine Color Yellow Urine Clarity Clear Urine pH 6.5 Urine Specific [place] 1.015 Urine Protein Neg (NEG-TRACE) Urine Glucose (UA) Neg mg/dL (NEG) Urine Ketones (Stick) Neg mg/dL (NEG) Urine Blood Small (NEG) Urine Nitrite Neg (NEG) Urine Bilirubin Neg (NEG) Urine Urobilinogen Dipstick 0.2 mg/dL (0.2 mg/dL) Urine Leukocyte Esterase Neg (NEG) Urine RBC 6-10 /HPF (0-2) Urine WBC 1-4 /HPF (0-4) Urine Squamous Epithelial Cells Many /LPF Urine Bacteria 0 /HPF (0-FEW) Urine Mucus Slight /LPF Urine Opiates Screen Neg (NEG) Urine Methadone Screen Neg (NEG) Urine Barbiturates Neg (NEG) Urine Phencyclidine Screen Neg (NEG) Urine Amphetamine/Methamphetamine Neg (NEG) Urine Benzodiazepines Screen Neg (NEG) Urine Cocaine Screen Neg (NEG) Urine Cannabinoids Screen Neg (NEG) Urine Ethyl Alcohol Neg (NEG) EKG EKG [] Radiology/Procedures Radiology/Procedures My interpretation of acute abdomen film shows no free air under the diaphragm. She has clips from previous gallbladder surgery. There is some isolated bowel loops. But overall pattern is nonspecific.[] Course & Med Decision Making Course & Med Decision Making Pertinent Labs and Imaging studies reviewed. (See chart for details). Keep follow up with ENT and primary. Zofran for nausea and vomiting. Clear fluid diet x 2 days. Must allow bowel rest. [] Final Impression Final Impression 1. Nausea and Vomiting[] 2. Viral Syndrome. Problems: Dragon Disclaimer Dragon Disclaimer This electronic medical record was generated, in whole or in part, using a voice recognition dictation system. RACHEL YANCEY MD Jul 29, 2017 19:50
[2017-07-29] MEDS ORDERED: IV RINGERS SOLUTION,LACTATED 1,000 ML IV SCH (20:00)
[2017-07-29] MEDS ORDERED: FAMOTIDINE 20 MG/2 ML VIAL IVP ONE (20:15)
[2017-07-29] MEDS ORDERED: ONDANSETRON PF 4 MG/2 ML VIAL. IV ONE (20:15)
[2017-07-29 20:36] LABS: BASO % 0 % (0-3); EOS # 0.1 x10^3/uL (0.0-0.7); EOS % 1 % (0-3); HEMATOCRIT 36.4 % (36.0-47.0); HEMOGLOBIN 12.6 g/dL (12.0-15.5); LYMPH # 2.2 x10^3/uL (1.0-4.8); LYMPH % 24 % (24-48); MEAN CORPUSCULAR HEMOGLOBIN 31 pg (25-35); MEAN CORPUSCULAR HGB CONC 35 g/dL (31-37); MEAN CORPUSCULAR VOLUME 90 fL (79-100); MONO # 0.5 x10^3/uL (0.0-1.1); MONO % 5 % (0-9); NEUT # 6.5 x10^3uL (1.8-7.7); NEUT % 70 % (31-73); PLATELET COUNT 202 x10^3/uL (140-400); RED BLOOD COUNT 4.06 x10^6/uL (3.50-5.40); RED CELL DISTRIBUTION WIDTH 15.1 % (11.5-14.5); WHITE BLOOD COUNT 9.2 x10^3/uL (4.0-11.0)
[2017-07-29 20:47] LABS: ALBUMIN 3.5 g/dL (3.4-5.0); CREATININE 0.8 mg/dL (0.6-1.0); DIRECT BILIRUBIN 0.1 mg/dL (0.0-0.2); GFR 85.4; POTASSIUM 3.9 mmol/L (3.5-5.1); TOTAL BILIRUBIN 0.2 mg/dL (0.2-1.0); TOTAL PROTEIN 7.4 g/dL (6.4-8.2)
[2017-07-29] MEDS ORDERED: IV NORMAL SALINE 1,000ML 1,000 ML IV ONE (21:00)
[2017-07-29 21:03] LABS: BACTERIA,URINE 0 /HPF (0-FEW); BILIRUBIN,URINE NEG (NEG); CLARITY,URINE CLEAR; COLOR,URINE YELLOW; GLUCOSE,URINE NEG (NEG); NITRITE,URINE NEG (NEG); SQUAMOUS EPITHELIAL CELL,UR MANY /LPF; UROBILINOGEN,URINE 0.2 mg/dL (0.2 mg/dL)
[2017-07-29 21:10] LABS: AMPHETAMINE/METHAMPHETAMINE NEG (NEG); BARBITURATES NEG (NEG); BENZODIAZEPINES NEG (NEG); CANNABINOIDS NEG (NEG); COCAINE NEG (NEG); METHADONE NEG (NEG); OPIATES NEG (NEG); PHENCYCLIDINE NEG (NEG)
[2017-07-29] MEDS ORDERED: ONDA8TAB12 PO (21:15)
[2017-07-29 22:20] VITALS: BP 94/48
--- NOTE | 2017-07-30 07:07 | RAD ---
Acute abdomen series with chest, 3 views, 07/29/2017: History: Nausea and vomiting Gas is present in large and small bowel without significant bowel distention. A couple of small nonspecific air-fluid levels are seen in the central abdomen. No free air is present in the abdomen. Surgical clips in the right upper quadrant suggest a previous cholecystectomy. There is no evidence of organomegaly or abnormal abdominal calcification. The heart size is normal. The lungs are clear. There is no evidence of pleural fluid. IMPRESSION: 1. Several small air-fluid levels in the central abdomen suggest a mild localized ileus. 2. The abdomen is otherwise unremarkable.
== END 2017-07-29 22:20 | disposition home or self-care (01) ==
LOC: ER 19:33
DX: B34.9 Viral infection, unspecified (principal); F17.210 Nicotine dependence, cigarettes, uncomplicated; F12.10 Cannabis abuse, uncomplicated; Z88.0 Allergy status to penicillin; Z88.6 Allergy status to analgesic agent
CPT/HCPCS: 36415; 74022; 80048; 80076; 80307; 81001; 83690; 84484; 84702; 85025; 96361; 96374; 96375; 99285; J2405; S0028; G0479; J7030

== ENCOUNTER 2017-08-21 20:41 | Emergency (ER) | payer OTHER ==
[~2017-08-21] VITALS: Ht 157.5 cm; Wt 82.1 kg
[2017-08-21 20:41] VITALS: BP 92/63
--- NOTE | 2017-08-21 22:47 | PHYS DOC ---
Text Text Upon arrival to the patient's room, it was noted that the patient was not in her room. The patient did not receive evaluation or treatment by this physician. The patient eloped from the emergency department without notifying staff. DWIGHT SOLIMAN MD Aug 21, 2017 22:46
== END 2017-08-21 22:58 | disposition left against medical advice (07) ==
LOC: ER 20:41
DX: K08.89 Other specified disorders of teeth and supporting structures (principal); Z53.21 Procedure and treatment not carried out due to patient leaving prior to being seen by health care provider

== ENCOUNTER 2017-09-01 18:15 | Emergency (ER) | payer OTHER ==
[~2017-09-01] VITALS: Ht 157.5 cm; Wt 81.6 kg
[2017-09-01] MEDS ORDERED: CLIN300C8 PO (19:29)
--- NOTE | 2017-09-01 19:31 | PHYS DOC ---
General Chief Complaint: FEVER Stated Complaint: FEVER SORE THROAT Time Seen by MD: 18:34 Source: patient Exam Limitations: no limitations Problems: History of Present Illness Initial Comments 26-year-old female to the emergency department with her daughter to be seen also with complaints of cough and fever and sore throat. Mom states that she's had a sore throat for months, says that she's had no new fever chills and dry cough for the past 2 days. Took ibuprofen at 1600 no vomiting or diarrhea. She refuses influenza testing Timing/Duration: other Severity: moderate Modifying Factors: worse with eating Associated Symptoms: cough, fever/chills, malaise, other Allergies: Coded Allergies: Penicillins (Verified Allergy, Intermediate, 04/16/17) aspirin (Verified Allergy, Intermediate, 03/22/17) Past Medical History Medical History: other (asthma, GERD, ovarian cyst, seizures) Surgical History: cholecystectomy Social History Smoker: cigarettes Alcohol: none Drugs: marijuana Review of Systems Constitutional: chills, fever, malaise EENTM: denies ear pain, nose congestion, throat pain, denies throat swelling Respiratory: cough, denies shortness of breath, denies wheezing Cardiovascular: denies chest pain, denies palpitations, denies syncope Gastrointestinal: denies abdominal pain, denies nausea, denies vomiting Musculoskeletal: denies back pain, denies joint swelling, denies neck pain Psychiatric/Neurological: headache, denies numbness, denies paresthesia, denies weakness Hematologic/Lymphatic: denies blood clots, denies easy bleeding, denies easy bruising Physical Exam General Appearance: no apparent distress Eyes: bilateral eye normal inspection, bilateral eye PERRL, bilateral eye EOMI Ear, Nose, Throat: other (right tonsil is 2+ with erythema and exudate, left tonsil is 1+ erythematous airway is patent) Neck: full range of motion, supple, lymphadenopathy (R) Respiratory: normal breath sounds, no respiratory distress Extremities: normal range of motion, non-tender Neurologic/Psychiatric: alert, oriented x 3 Orders, Labs, Meds Strep negative Departure Time of Disposition: 19:30 Disposition: HOME, SELF-CARE Diagnosis: tonsillitis, flulike symptoms Condition: GOOD Patient Instructions: Tonsillitis, [id number] Additional Instructions: Work excuse through September 03. [id number] Tylenol and ibuprofen as needed. Aggressive hydration with Gatorade and water. Prescription: Clindamycin Follow-up with your doctor in 7-10 days if not better. Return to ED with new or changing symptoms. ANNY MARLOW DO Sep 01, 2017 19:31
[2017-09-01 19:40] VITALS: BP 112/81
== END 2017-09-01 19:42 | disposition home or self-care (01) ==
LOC: ER 18:15
DX: J03.90 Acute tonsillitis, unspecified (principal); J45.909 Unspecified asthma, uncomplicated; K21.9 Gastro-esophageal reflux disease without esophagitis; F17.210 Nicotine dependence, cigarettes, uncomplicated; F12.10 Cannabis abuse, uncomplicated; Z90.49 Acquired absence of other specified parts of digestive tract; Z88.0 Allergy status to penicillin; Z88.6 Allergy status to analgesic agent
CPT/HCPCS: 87070; 87880; 99283

== ENCOUNTER 2017-09-12 09:08 | Emergency (ER) | payer OTHER ==
[~2017-09-12] VITALS: Ht 157.5 cm; Wt 81.6 kg
[~2017-09-12 09:08] MED LIST changes: +CLIN300C8 PO
[2017-09-12] MEDS ORDERED: IBUP800T19 PO (09:31)
[2017-09-12] MEDS ORDERED: CLIN150C14 PO (09:31)
--- NOTE | 2017-09-12 09:31 | PHYS DOC ---
Past History Past Medical History: Asthma, GERD, Ovarian Cyst, Seizure, Other Past Surgical History: Cholecystectomy Smoking: Cigarettes, Greater than 1 pack/day Alcohol Use: None Drug Use: Marijuana Adult General Chief Complaint Chief Complaint: DENTAL PROBLEM HPI HPI 26 year old female patient with frequent emergency room visits complaining of facial swelling after she had 3 teeth pulled out yesterday by her dentist. Patient state she had prescription of often but did not have prescription of antibiotic and concern for infection. Patient rated her pain 2/10 and denies fever and chills and vomiting and problems with swallowing. Review of Systems Review of Systems Constitutional: Denies fever or chills [] Eyes: Denies change in visual acuity, redness, or eye pain [] HENT: Denies nasal congestion or sore throat [] Respiratory: Denies cough or shortness of breath [] Cardiovascular: No additional information not addressed in HPI [] GI: Denies abdominal pain, nausea, vomiting, bloody stools or diarrhea [] : Denies dysuria or hematuria [] Musculoskeletal: Denies back pain or joint pain [] Integument: Denies rash or skin lesions [] Neurologic: Denies headache, focal weakness or sensory changes [] Endocrine: Denies polyuria or polydipsia [] All other systems were reviewed and found to be within normal limits, except as documented in this note. Allergies Allergies Allergies Coded Allergies Type Severity Reaction Last Updated Verified Penicillins Allergy Intermediate 04/16/17 Yes aspirin Allergy Intermediate 03/22/17 Yes Physical Exam Physical Exam Constitutional: Well developed, well nourished, mild distress, non-toxic appearance. [] HENT: Normocephalic, atraumatic, bilateral external ears normal, oropharynx moist, no oral exudates, nose normal, left lower jaw edema without erythema or sign of abscess, left lower jaw missing molar teeth without sign of abscess. [] Eyes: PERRLA, EOMI, conjunctiva normal, no discharge. [] Neck: Normal range of motion, no tenderness, supple, no stridor. [] Cardiovascular:Heart rate regular rhythm, no murmur [] Lungs & Thorax: Bilateral breath sounds clear to auscultation [] Neurologic: Alert and oriented X 3, normal motor function, normal sensory function, no focal deficits noted. [] Psychologic: Anxious, judgement normal, mood normal. [] EKG EKG [] Radiology/Procedures Radiology/Procedures [] Course & Med Decision Making Course & Med Decision Making discharge: I've spoken with the patient and/or caregivers. I've explained the patient's condition, diagnosis and treatment plan based on information available to me at this time. I've answered the patient's and/or caregivers questions and addressed any concerns. The patient and/or caregivers have a good understanding the patient's diagnosis, condition and treatment plan as can be expected at this point. Vital signs have been stabilized. The patient's condition is stable for discharge from the emergency department. The patient will pursue further outpatient evaluation with her primary care provider or other designated consulting physician as outlined in the discharge instructions. Patient and/or caregivers are agreeable to this plan of care and follow-up instructions have been explained in detail. The patient and/or caregivers have received these instructions in written format and expressed understanding of these discharge instructions. The patient and her caregivers are aware that if any significant change in condition or worsening of symptoms should prompt him to immediately return to this of the closest emergency department. If an emergent department is not readily available I would encourage him to call 911. Dragon Disclaimer Dragon Disclaimer This electronic medical record was generated, in whole or in part, using a voice recognition dictation system. Departure Departure: Impression: Primary Impression: Facial edema Additional Impression: Dentalgia Disposition: HOME, SELF-CARE (At 927) Condition: STABLE Referrals: WILLIE MANRIQUEZ MD (PCP) Patient Instructions: Cellulitis, Dental Dry Socket Additional Instructions: Continue home pain medication Follow-up with your primary care physician in 3-5 days Return to ER if not getting better Scripts Ibuprofen (IBUPROFEN) 800 Mg Tablet 1 TAB PO TID, #30 TAB Prov: JOEY ROGERS MD 09/12/17 Clindamycin Hcl (CLINDAMYCIN HCL) 150 Mg Capsule 1 CAP PO QID, #28 CAP Prov: JOEY ROGERS MD 09/12/17 Problem Qualifiers JOEY ROGERS MD Sep 12, 2017 09:31
[2017-09-12 09:50] VITALS: BP 114/69
== END 2017-09-12 09:50 | disposition home or self-care (01) ==
LOC: ER 09:08
DX: R60.9 Edema, unspecified (principal); K08.89 Other specified disorders of teeth and supporting structures; K21.9 Gastro-esophageal reflux disease without esophagitis; J45.909 Unspecified asthma, uncomplicated; F17.210 Nicotine dependence, cigarettes, uncomplicated; F12.10 Cannabis abuse, uncomplicated; Z88.0 Allergy status to penicillin; Z88.6 Allergy status to analgesic agent
CPT/HCPCS: 99283

== ENCOUNTER 2017-09-19 23:24 | Observation (INO) | payer OTHER ==
[~2017-09-19] VITALS: Ht 157.5 cm; Wt 82.1 kg
[~2017-09-19 23:24] MED LIST changes: +CLIN150C14 PO
--- NOTE | 2017-09-19 23:32 | ED.ADGEN ---
Past History Past Medical History: Asthma, GERD, Ovarian Cyst, Seizure, Other Past Surgical History: Cholecystectomy Smoking: Cigarettes, Greater than 1 pack/day Alcohol Use: None Drug Use: Marijuana Adult General Chief Complaint Chief Complaint " I guess ... I had a seizure..." " I have not been taking my depakote...".. " I ve had a little cold lately...".." I just had some teeth extracted for abscess and cellulitis..." HPI HPI Patient is a 26 year old female who presents with hx of tonic clonic seizure. Patient has history of seizure disorder and reportedly taking Depakote. She however has been noncompliant with her medicine regimen. Patient also has been drinking tonight. No recent travel. No history of ill contacts. No history immunosuppression. Recent history of upper respiratory congestion and cold symptoms. Recent dental extractions for abscesses, but did not complete her antibiotics. Review of Systems Review of Systems Constitutional: Denies fever or chills [] Eyes: Denies change in visual acuity, redness, or eye pain [] HENT: History of nasal congestion and mild pharyngeal injection . Dental pain- at extractions sites Respiratory: Denies cough or shortness of breath [] Cardiovascular: No additional information not addressed in HPI []Nausea and vomiting GI: Denies abdominal pain,, bloody stools or diarrhea [] : Denies dysuria or hematuria [] Musculoskeletal: Denies back pain or joint pain [] Integument: Denies rash or skin lesions [] Neurologic: Denies headache, focal weakness or sensory changes []Seizure complaints Endocrine: Denies polyuria or polydipsia [] All other systems were reviewed and found to be within normal limits, except as documented in this note. Family History Family History Noncontributory Current Medications Current Medications Current Medications Medications (Trade) Dose Ordered Sig/Silvana Start Time Stop Time Status Last Admin Dose Admin Ceftriaxone Sodium 1 gm/ Sodium Chloride 50 ml @ 100 mls/hr DAILY 09/20/17 09:00 UNV Ceftriaxone Sodium (Rocephin) 1 gm Q24H 09/20/17 09:00 09/20/17 09:00 DC Lactated Ringer's 1,000 ml @ 1,000 mls/hr 1X ONCE 09/20/17 02:00 09/20/17 02:59 DC 09/20/17 02:00 1,000 MLS/HR Lorazepam (Ativan) 1 mg 1X ONCE 09/20/17 01:45 09/20/17 01:46 DC Multivitamins/ Minerals 10 ml/ Folic Acid 1 mg/ Thiamine HCl 100 mg/Dextrose/ Lactated Ringer's 1,011.2 ml @ 1,000 mls/ hr 1X ONCE 09/20/17 00:00 09/20/17 01:00 DC 09/20/17 00:18 1,000 MLS/HR Ondansetron HCl (Zofran) 4 mg PRN Q4HRS PRN 09/20/17 02:45 09/20/17 03:17 DC Potassium Chloride/Sodium Chloride 1,000 ml @ 75 mls/hr 1X ONCE 09/20/17 02:45 09/20/17 16:04 UNV Potassium Chloride (KCl Oral Soln) 40 meq 1X ONCE 09/20/17 01:30 09/20/17 01:31 DC Valproic Acid (Depakene) 500 mg BID 09/20/17 09:00 09/20/17 09:00 DC Valproic Acid 500 mg/Sodium Chloride 55 ml @ 55 mls/hr 1X ONCE 09/20/17 01:00 09/20/17 01:59 DC 09/20/17 01:42 55 MLS/HR See nursing for home meds Allergies Allergies Allergies Coded Allergies Type Severity Reaction Last Updated Verified Penicillins Allergy Intermediate 04/16/17 Yes aspirin Allergy Intermediate 03/22/17 Yes Physical Exam Physical Exam Constitutional: Mild distress, intoxicated in appearance. [] HENT: Normocephalic, atraumatic, bilateral external ears normal, oropharynx moist, no oral exudates, nose rhinorrhea. Dental extraction site Lt lower and Rt upper. Eyes: PERRLA, EOMI, conjunctiva normal, no discharge. [] Neck: Normal range of motion, no tenderness, supple, no stridor. [] Cardiovascular: Tachycardia Heart rate regular rhythm, no murmur [] Lungs & Thorax: Bilateral breath sounds equal few scattered wheezes on auscultation [] Abdomen: Bowel sounds normal, soft, no tenderness, no masses, no pulsatile masses. [] Skin: Warm, dry, no erythema, no rash. [] Back: No tenderness, no CVA tenderness. [] Extremities: No tenderness, no cyanosis, no clubbing, ROM intact, no edema. [] Neurologic: Alert and oriented X 3, but very slow to respond, ( post ictal in appearance) normal motor function, normal sensory function, no focal deficits noted. DTRs +2 patella and brachial. Property Custodian equal. No drift. Psychologic: Affect anxious, mood depressed. Current Patient Data Lab Results Laboratory Tests Test 09/19/17 22:56 09/19/17 23:59 POC Urine HCG, Qualitative hcg negative (Negative) White Blood Count 16.0 x10^3/uL (4.0-11.0) H Red Blood Count 3.78 x10^6/uL (3.50-5.40) Hemoglobin 11.9 g/dL (12.0-15.5) L Hematocrit 33.5 % (36.0-47.0) L Mean Corpuscular Volume 89 fL (79-100) Mean Corpuscular Hemoglobin 31 pg (25-35) Mean Corpuscular Hemoglobin Concent 35 g/dL (31-37) Red Cell Distribution Width 15.1 % (11.5-14.5) H Platelet Count 279 x10^3/uL (140-400) Neutrophils (%) (Auto) 55 % (31-73) Lymphocytes (%) (Auto) 38 % (24-48) Monocytes (%) (Auto) 6 % (0-9) Eosinophils (%) (Auto) 1 % (0-3) Basophils (%) (Auto) 0 % (0-3) Neutrophils # (Auto) 8.8 x10^3uL (1.8-7.7) H Lymphocytes # (Auto) 6.0 x10^3/uL (1.0-4.8) H Monocytes # (Auto) 1.0 x10^3/uL (0.0-1.1) Eosinophils # (Auto) 0.2 x10^3/uL (0.0-0.7) Basophils # (Auto) 0.1 x10^3/uL (0.0-0.2) Segmented Neutrophils % 56 % (35-66) Band Neutrophils % 1 % (0-9) Lymphocytes % 28 % (24-48) Atypical Lymphocytes % (Manual) 9 % (0-0) H Monocytes % 5 % (0-10) Eosinophils % 1 % (0-5) Platelet Estimate Adequate (ADEQUATE) Erythrocyte Sedimentation Rate 33 (0-25) H Prothrombin Time 10.0 SEC (9.4-11.4) Prothrombin Time INR 1.0 (0.9-1.1) PTT 22 SEC (23-33) L Urine Collection Type U cath Urine Color Straw Urine Clarity Clear Urine pH 6.0 Urine Specific [place] <=1.005 Urine Protein 30 mg/dl (NEG-TRACE) Urine Glucose (UA) Neg mg/dL (NEG) Urine Ketones (Stick) Neg mg/dL (NEG) Urine Blood Small (NEG) Urine Nitrite Neg (NEG) Urine Bilirubin Neg (NEG) Urine Urobilinogen Dipstick 0.2 mg/dL (0.2 mg/dL) Urine Leukocyte Esterase Neg (NEG) Urine RBC Rare /HPF (0-2) Urine WBC 0 /HPF (0-4) Urine Squamous Epithelial Cells Few /LPF Urine Amorphous Sediment Present /HPF Urine Bacteria Few /HPF (0-FEW) Maternal Serum HCG Beta Subunit < 1 mIU/mL (0-6) Sodium Level 138 mmol/L (136-145) Potassium Level 2.6 mmol/L (3.5-5.1) *L Chloride Level 102 mmol/L (98-107) Carbon Dioxide Level 19 mmol/L (21-32) L Anion Gap 17 (6-14) H Blood Urea Nitrogen 10 mg/dL (7-20) Creatinine 1.0 mg/dL (0.6-1.0) Estimated GFR (Cockcroft-Gault) 66.0 Glucose Level 133 mg/dL (70-99) H Calcium Level 8.8 mg/dL (8.5-10.1) Magnesium Level 2.0 mg/dL (1.8-2.4) Creatine Kinase 71 U/L (26-192) Creatine Kinase MB (Mass) 0.5 ng/mL (0.0-3.6) Creatine Kinase MB Relative Index 0.7 % (0-4) Troponin I Quantitative < 0.017 ng/mL (0-0.055) C-Reactive Protein 10.0 mg/L (0-3.3) H MI-Xqn-[id number]-Type Natriuretic Peptide 74 pg/mL (0-124) Urine Opiates Screen Neg (NEG) Urine Methadone Screen Neg (NEG) Urine Barbiturates Neg (NEG) Valproic Acid Level 40 mcg/mL (50-100) L Valproic Acid Last Dose Date 05/17/11 Valproic Acid Last Dose Time 1111 Urine Phencyclidine Screen Neg (NEG) Urine Amphetamine/Methamphetamine Neg (NEG) Urine Benzodiazepines Screen Neg (NEG) Urine Cocaine Screen Neg (NEG) Urine Cannabinoids Screen Neg (NEG) Ethyl Alcohol Level 63 mg/dL (0-10) H Urine Ethyl Alcohol Pos (NEG) EKG EKG My interpretation EKG shows a sinus tachycardia at 127 bpm. Nonspecific anterior lateral changes. No findings acute STEMI with contralateral changes.[] Radiology/Procedures Radiology/Procedures My interpretation chest x-ray shows clips from strep. No large infiltrate. No free air under the diaphragm.[] Course & Med Decision Making Course & Med Decision Making Pertinent Labs and Imaging studies reviewed. (See chart for details) Discussed presentation, testing and tx. plan with Dr. Winters- will admit for further eval. and tx. [] Final Impression Final Impression 1. Seizure Hx[] tonic clonic 2. Non- Compliance with seizure meds and antibiotics. 3. ETOH abuse 4. Subtherapeutic valproic acid 40 5. Hypokalemia- critical 2.6 6. Leukocytosis 16 7. Anemia 11.9 Hgb 8. Mild elevation of sedimentation rate 9. Recent Dental Extractions for Dental Abscess Problems: Dragon Disclaimer Dragon Disclaimer This electronic medical record was generated, in whole or in part, using a voice recognition dictation system. RACHEL YANCEY MD Sep 19, 2017 23:31
[2017-09-19] MEDS ORDERED: ONDANSETRON PF 4 MG/2 ML VIAL. ONE (23:55)
[2017-09-20] MEDS ORDERED: MVI, ADULT NO.4 WITH VIT K 10 ML, FOLIC ACID 1 MG, THIAMINE 100 MG in IV DEXTROSE 5%-LA... IV ONE ×4
[2017-09-20] MEDS ORDERED: FOLIC ACID 5 MG/ML SYRINGE for ER IV ONE (00:13)
[2017-09-20] MEDS ORDERED: THIAMINE 200 MG/2 ML VIAL. IV ONE (00:13)
[2017-09-20 00:30] LABS: BARBITURATES NEG (NEG); BENZODIAZEPINES NEG (NEG); CANNABINOIDS NEG (NEG); COCAINE NEG (NEG); METHADONE NEG (NEG); OPIATES NEG (NEG); PHENCYCLIDINE NEG (NEG)
[2017-09-20 00:33] LABS: AMORPHOUS SEDIMENT,UR PRESENT /HPF; BACTERIA,URINE FEW /HPF (0-FEW); BASO # 0.1 x10^3/uL (0.0-0.2); BASO % 0 % (0-3); BILIRUBIN,URINE NEG (NEG); CLARITY,URINE CLEAR; COLOR,URINE STRAW; EOS # 0.2 x10^3/uL (0.0-0.7); EOS % 1 % (0-3); GLUCOSE,URINE NEG (NEG); HEMATOCRIT 33.5 % (36.0-47.0); HEMOGLOBIN 11.9 g/dL (12.0-15.5); LYMPH % 38 % (24-48); MEAN CORPUSCULAR HEMOGLOBIN 31 pg (25-35); MEAN CORPUSCULAR HGB CONC 35 g/dL (31-37); MEAN CORPUSCULAR VOLUME 89 fL (79-100); MONO % 6 % (0-9); NEUT # 8.8 x10^3uL (1.8-7.7); NEUT % 55 % (31-73); NITRITE,URINE NEG (NEG); PLATELET COUNT 279 x10^3/uL (140-400); RBC,URINE RARE /HPF (0-2); RED BLOOD COUNT 3.78 x10^6/uL (3.50-5.40); RED CELL DISTRIBUTION WIDTH 15.1 % (11.5-14.5); SQUAMOUS EPITHELIAL CELL,UR FEW /LPF; UROBILINOGEN,URINE 0.2 mg/dL (0.2 mg/dL); WBC,URINE 0 /HPF (0-4)
[2017-09-20 00:43] LABS: AMPHETAMINE/METHAMPHETAMINE NEG (NEG)
[2017-09-20 00:58] LABS: VAL ACID 40 mcg/mL (50-100)
[2017-09-20] MEDS ORDERED: VALPROATE SODIUM 500 MG in IV NORMAL SALINE 50ML 50 ML IV ONE (01:00)
[2017-09-20] MEDS ORDERED: ONDANSETRON PF 4 MG/2 ML VIAL. IV ONE (01:00)
[2017-09-20 01:02] LABS: CALCIUM 8.8 mg/dL (8.5-10.1)
[2017-09-20 01:06] LABS: POTASSIUM 2.6 mmol/L (3.5-5.1)
[2017-09-20] MEDS ORDERED: VALPROATE SODIUM 500 MG/5 ML VIAL IV ONE (01:26)
[2017-09-20] MEDS ORDERED: IV NORMAL SALINE 50ML 50 ML ONE (01:26)
[2017-09-20] MEDS ORDERED: POTASSIUM CHLORIDE 20 MEQ/15 ML ORAL LIQUID. PEG ONE (01:30)
[2017-09-20 01:42] LABS: % ATYL 9 % (0-0); % BANDS 1 % (0-9); % EOS 1 % (0-5); % LYMPHS 28 % (24-48); % MONOS 5 % (0-10); % SEGS 56 % (35-66); PLT ESTIMATE ADEQUATE (ADEQUATE); SEDIMENTATION RATE 33 (0-25)
[2017-09-20] MEDS ORDERED: LORazepam 1 MG TABLET PO ONE (01:45)
[2017-09-20] MEDS ORDERED: IV RINGERS SOLUTION,LACTATED 1,000 ML IV ONE (02:00)
--- NOTE | 2017-09-20 02:01 | RAD ---
INDICATION: Seizure, leukocytosis COMPARISON: None. TECHNIQUE: Axial CT images obtained through the head without intravenous contrast. One or more of the following individualized dose reduction techniques were utilized for this examination: 1. Automated exposure control; 2. Adjustment of the mA and/or kV according to patient size; 3. Use of iterative reconstruction technique. FINDINGS: Some limitation secondary to patient motion. No intracranial hemorrhage. No midline shift. Basal cisterns patent. Ventricles and sulci are unremarkable. No acute osseous abnormality. Orbits and paranasal sinuses unremarkable. IMPRESSION: 1. No acute intracranial hemorrhage. Electronically signed by: Marky Perry MD (09/20/2017 1:58 AM) [id number]
[2017-09-20] MEDS ORDERED: ONDANSETRON PF 4 MG/2 ML VIAL. IV PRN (02:45)
[2017-09-20] MEDS ORDERED: POTASSIUM CL 40MEQ IN 0.9%NACL 1,000 ML IV ONE ×3 (02:45→04:03)
[2017-09-20] MEDS ORDERED: cefTRIAXone IV Push 1 GM VIAL. IVP ONE (03:00)
[2017-09-20 04:10] VITALS: BP 101/52
[2017-09-20] MEDS ORDERED: OMEP40CA5 PO (04:56)
[2017-09-20] MEDS ORDERED: LISI40TA PO (04:56)
[2017-09-20] MEDS ORDERED: CETI10CA PO (04:57)
[2017-09-20] MEDS ORDERED: TRAM50TA PO (04:59)
[2017-09-20] MEDS ORDERED: DIVA500T4 PO (04:59)
[2017-09-20] MEDS ORDERED: MONT10TA9 PO (04:59)
[2017-09-20] MEDS ORDERED: IBUP800T19 PO (04:59)
[2017-09-20] MEDS ORDERED: traMADol 50 MG TABLET PO PRN (05:00)
[2017-09-20] MEDS ORDERED: IBUPROFEN 800 MG TABLET. PO PRN (05:00)
[2017-09-20 05:35] VITALS: BP 95/59
--- NOTE | 2017-09-20 05:46 | EKG ---
[address] [address] Test Date: 2017-09-19 Test Time: 23:35:41 Pat Name: GURPREET WELDON Department: Room: Gender: F Migration Agent: MERLE : 1990 Requested By: RACHEL YANCEY Order Number: [id number] Reading MD: Measurements Intervals [place] Rate: 127 P: 12 [place]: 144 QRS: 60 QRSD: 86 T: 24 QT: 310 QTc: 456 Interpretive Statements SINUS TACHYCARDIA QRS(T) CONTOUR ABNORMALITY CONSIDER ANTEROLATERAL MYOCARDIAL DAMAGE ST & T ABNORMALITY, CONSIDER ANTERIOR ISCHEMIA OR LEFT VENTRICULAR STRAIN ABNORMAL ECG RI6.01 No previous ECG available for comparison
[2017-09-20 05:55] LABS: INFLUENZA A PATIENT NEGATIVE (NEGATIVE); INFLUENZA B PATIENT NEGATIVE (NEGATIVE)
[2017-09-20] MEDS ORDERED: NICOTINE 21MG PATCH. TD PRN (06:00)
[2017-09-20] MEDS ORDERED: PANTOPRAZOLE 40 MG TABLET. PO SCH (07:30)
[2017-09-20 07:59] LABS: BASO % 0 % (0-3); EOS % 0 % (0-3); HEMATOCRIT 28.8 % (36.0-47.0); HEMOGLOBIN 10.1 g/dL (12.0-15.5); LYMPH # 2.2 x10^3/uL (1.0-4.8); LYMPH % 21 % (24-48); MEAN CORPUSCULAR HEMOGLOBIN 31 pg (25-35); MEAN CORPUSCULAR HGB CONC 35 g/dL (31-37); MEAN CORPUSCULAR VOLUME 89 fL (79-100); MONO # 0.4 x10^3/uL (0.0-1.1); MONO % 4 % (0-9); NEUT # 8.2 x10^3uL (1.8-7.7); NEUT % 75 % (31-73); PLATELET COUNT 173 x10^3/uL (140-400); RED BLOOD COUNT 3.23 x10^6/uL (3.50-5.40); RED CELL DISTRIBUTION WIDTH 15.1 % (11.5-14.5); WHITE BLOOD COUNT 10.9 x10^3/uL (4.0-11.0)
[2017-09-20 08:04] LABS: ALBUMIN 2.9 g/dL (3.4-5.0); ALBUMIN/GLOBULIN RATIO 0.9 (1.0-1.7); CALCIUM 8.5 mg/dL (8.5-10.1); CREATININE 0.7 mg/dL (0.6-1.0); GFR 99.6; POTASSIUM 4.3 mmol/L (3.5-5.1); TOTAL BILIRUBIN 0.2 mg/dL (0.2-1.0); TOTAL PROTEIN 6.2 g/dL (6.4-8.2)
--- NOTE | 2017-09-20 08:31 | RAD ---
Indication: Seizure. Technique: Portable AP upright chest x-ray Comparison: Previous study from 07/29/2017 Findings: Heart is normal in size. Lungs are clear. No pneumothorax or pleural effusion. Visualized bony thorax is within normal limits. Impression: No acute cardiopulmonary process.
[2017-09-20] MEDS ORDERED: VALPROIC ACID 250 MG CAPSULE. PO SCH (09:00)
[2017-09-20] MEDS ORDERED: CETIRIZINE HCL 10 MG TABLET PO SCH (09:00)
[2017-09-20] MEDS ORDERED: MONTELUKAST 10 MG TABLET. PO SCH (09:00)
[2017-09-20] MEDS ORDERED: cefTRIAXone IV Push 1 GM VIAL. IVP SCH (09:00)
[2017-09-20 11:31] VITALS: BP 95/52
[2017-09-20] MEDS ORDERED: CEPH-264 PO (15:39)
[2017-09-20 15:41] VITALS: BP 107/70
--- NOTE | 2017-09-20 17:12 | SSS ---
ADMIT DATE: 09/20/2017 HISTORY OF PRESENT ILLNESS: The patient is a 26-year-old female patient who came to the Emergency Room complaining of recurrent bouts of nausea, vomiting that has been going on for a while, almost a week. She has also had diarrhea for the last 3 days according to her. She stated that she is known to have tonic-clonic seizures; however, she has been compliant with her Depakote. She has also had her ____ and was not compliant with her antibiotic and she has been drinking and apparently also her toxic screen was positive for alcohol but no marijuana. She was evaluated in the Emergency Room and was found to have leukocytosis and her chemistry showed severe hypokalemia with a potassium of 2.6 mEq per liter and basically was admitted to continue with IV fluid to replenish her potassium. Continue with all her other medications. Continue with Depakote and to basically monitor her labs and adjust medication accordingly. PAST MEDICAL HISTORY: Significant for seizure disorder, bronchial asthma, gastroesophageal reflux disease. She is also known to have ovarian cyst. PAST SURGICAL HISTORY: Significant for cholecystectomy. ALLERGIES: She is allergic to PENICILLIN, ASPIRIN. MEDICATIONS: She is currently on following medications: She is on Zyrtec 10 mg once a day, Depakote extended release 500 mg once a day, ibuprofen 800 mg every 8 hours as needed, Singulair 10 mg at bedtime, omeprazole 40 mg once a day and tramadol 50 mg every 6 hours as needed. FAMILY HISTORY: She has 2 brothers, 1 older and has cleft palate, one younger seemingly healthy. She does not know her biological father. Her mother is alive at age of 51 and healthy. SOCIAL HISTORY: She is , has 2 daughters and 1 son. She smokes a pack-a-day and drinks alcohol occasionally. She uses marijuana also occasionally. 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 REVIEW OF SYSTEMS: The patient denied any blurring of vision, cataract, glaucoma or macular degeneration. Denied any earache, tinnitus or sensorineural deafness. Denied any nosebleeds, stuffy nose or postnasal drip. Denied any sore throat, sore tongue, toothache, hoarseness of voice or difficulty swallowing. She did have recurrent bouts of nausea, vomiting as well as diarrhea. All subsided. Denied any hematemesis, melena or hematochezia. Denied any dysuria, frequency or hematuria. Denied any chest pain, shortness of breath, orthopnea, paroxysmal nocturnal dyspnea. Denied any cough, phlegm or hemoptysis. Denied any chills, rigors or fever. PHYSICAL EXAMINATION: GENERAL: On arrival to the Emergency Room, she looked well, slightly pale, but no jaundice, cyanosis, or thyromegaly. No jugular venous distension. No limb edema. VITAL SIGNS: Her heart rate was 116, blood pressure was 106/51, her temperature was 98, respiratory rate 20, and oxygen saturation was 98% on room air. HEENT: Showed normocephalic, atraumatic. NECK: Supple. HEART: Showed normal first and second sounds. No gallop, rub or murmur. CHEST: Clear to auscultation. No crepitation or rhonchi. ABDOMEN: Distended, soft, nontender. NEUROLOGIC: She was awake, alert, responding appropriately. Cranial nerves intact. EXTREMITIES: She moves extremities without difficulty. She ambulates without assistance or assistive devices. LABORATORY AND IMAGING DATA: Initially showed a serum sodium 138, potassium 2.6, chloride 102, bicarbonate 19, anion gap of 17, BUN 10, creatinine 1, estimated GFR was 66 mL per minute. Her glucose 133, calcium was 8.8, magnesium 2. Her CK was 71, CK-MB was 0.5 and troponin was 0.017. Her C-reactive protein was 10, beta natriuretic peptide was 74. Total protein was 6.2, albumin 2.9. White cell count was 16,000, hemoglobin 11.9, hematocrit 33.5, MCV 89 and platelet count 279,000. Her prothrombin time was 10, INR 1, aPTT 22. Urinalysis showed the urine was yellow, straw colored, clear with a pH of 6, specific gravity 1.005. The urine protein is about 30 mg/dL. The urine was negative for glucose, ketones, small amount of blood, negative for nitrite and leukocyte esterase. There was 0.2 mg of his urobilinogen, rare RBCs, no WBCs and very few bacteria. Her urine toxicology screen was positive for ethyl alcohol. Her chest x-ray showed the heart is normal in size. Lungs are clear. No pneumothorax or pleural effusion. Visualized bony thorax is within normal limits. CT scan of the head showed that there is some limitation secondary to patient's motion. However, there is no intracranial hemorrhage, no midline shift. Basal cisterns are patent. Ventricles and sulci are unremarkable. No acute osseous abnormality. Orbits and paranasal sinuses are unremarkable. ASSESSMENT AND PLAN: The patient was started on IV Rocephin, continued all her medication. Continue IV fluid in the form of normal saline with potassium chloride and she did very well. She has had no further episodes of nausea, vomiting. No diarrhea. Her electrolytes has normalized. In fact, her serum potassium has normalized and has risen to 4.3 mEq per liter and that she has had no further episodes of nausea, vomiting, no diarrhea. The patient was discharged home to continue with all her medication and also to continue with Keflex 500 mg 3 times a day for her dental abscess and periodontitis. FINAL DISCHARGE DIAGNOSES: 1. Recurrent bouts of nausea, vomiting. 2. Alcohol intoxication. 3. Hypokalemia 4. Seizure disorder 5. Periodontitis. AKASH KNAPP MD DR: SAMMY/gwen JOB#: [id number] / [id number]
[2017-09-20] MEDS ORDERED: LACTOBACILLUS RHAMNOSUS GG 1 CAPSULE. PO SCH (21:00)
[2017-09-20] MEDS ORDERED: DIVALPROEX ER 500 MG TAB.ER.24H PO SCH (21:00)
== END 2017-09-20 14:35 | disposition home or self-care (01) ==
LOC: ER 23:24 → 1 SOUTH 09-20 02:30 → INTOOBSV 09-20 02:30 → ER 09-20 03:16
PROVIDERS: ADMIT Internal Medicine; ATTEND Internal Medicine
DX: R11.2 Nausea with vomiting, unspecified (principal); F10.129 Alcohol abuse with intoxication, unspecified; E87.6 Hypokalemia; G40.89 Other seizures; J45.909 Unspecified asthma, uncomplicated; K21.9 Gastro-esophageal reflux disease without esophagitis; K05.30 Chronic periodontitis, unspecified; K04.7 Periapical abscess without sinus; F12.90 Cannabis use, unspecified, uncomplicated; F17.210 Nicotine dependence, cigarettes, uncomplicated; D64.9 Anemia, unspecified; D72.829 Elevated white blood cell count, unspecified; R70.0 Elevated erythrocyte sedimentation rate; Z88.0 Allergy status to penicillin; Z88.8 Allergy status to other drugs, medicaments and biological substances; Z91.19 Patient's noncompliance with other medical treatment and regimen; Z98.890 Other specified postprocedural states
CPT/HCPCS: 36415; 70450; 71045; 80048; 80053; 80164; 80307; 81001; 81025; 82553; 83735; 83880; 84484; 84702; 85007; 85025; 85610; 85651; 85730; 86140; 87070; 87804; 87880; 93005; 96365; 96366; 96367; 96375; 96376; 99285; G0378; G0379; G0480; J0696; J2405; J3490; J7120; G0479

== ENCOUNTER 2017-09-30 23:31 | Emergency (ER) | payer OTHER ==
[~2017-09-30] VITALS: Ht 157.5 cm; Wt 82.1 kg
[~2017-09-30 23:31] MED LIST changes: +CETI10CA PO; +DIVA500T4 PO; +LISI40TA PO; +MONT10TA9 PO; +OMEP40CA5 PO; +TRAM50TA PO
--- NOTE | 2017-09-30 23:35 | ED.ADGEN ---
Past History Past Medical History: Asthma, GERD, Ovarian Cyst, Seizure Past Surgical History: Cholecystectomy, Other Smoking: Cigarettes, Greater than 1 pack/day Alcohol Use: Heavy Drug Use: Marijuana Adult General Chief Complaint Chief Complaint ".. I just puke up my dinner.. and maybe I had seizure... I was here the other day.... I had high white count... and my depakote was low..." HPI HPI Patient is a 26 year old female who presents with nausea, vomiting and possible seizure. Pt. actively vomiting. Pt. friend also ate same food with no ill effects. Pt. seen on 09/20/17 for similar symptoms. Patient has history of seizure disorder, noncompliance with seizure meds, alcohol abuse, and polysubstance abuse. Patient denies any trauma. Patient denies any travel. Patient denies any specific ill contacts. Patient previously admitted. Review of Systems Review of Systems Constitutional: Denies fever or chills [] Eyes: Denies change in visual acuity, redness, or eye pain [] HENT: Denies nasal congestion or sore throat [] Respiratory: Denies cough or shortness of breath [] Cardiovascular: No additional information not addressed in HPI [] GI: Complaints of abdominal pain, nausea, vomiting,. Denies bloody stools or diarrhea [] : Denies dysuria or hematuria [] Musculoskeletal: Denies back pain or joint pain [] Integument: Denies rash or skin lesions [] Neurologic: Denies headache, focal weakness or sensory changes . Complaints of post ictal feeling Endocrine: Denies polyuria or polydipsia [] All other systems were reviewed and found to be within normal limits, except as documented in this note. Family History Family History Hypertension Current Medications Current Medications Current Medications Medications (Trade) Dose Ordered Sig/Silvana Start Time Stop Time Status Last Admin Dose Admin Famotidine (Pepcid Vial) 20 mg 1X ONCE 09/30/17 23:45 10/01/17 00:22 DC 10/01/17 00:26 20 MG Lactated Ringer's 1,000 ml @ 1,000 mls/hr Q1H 10/01/17 23:45 10/02/17 00:44 10/01/17 00:27 1,000 MLS/HR Ondansetron HCl (Zofran) 8 mg 1X ONCE 09/30/17 23:45 10/01/17 00:22 DC 10/01/17 00:27 8 MG Sodium Chloride 50 ml @ As Directed STK-MED ONCE 10/01/17 02:52 10/01/17 02:53 DC Valproic Acid (Depacon) 500 mg STK-MED ONCE 10/01/17 02:53 10/01/17 02:54 DC Valproic Acid 500 mg/Sodium Chloride 55 ml @ 55 mls/hr 1X ONCE 10/01/17 03:00 10/01/17 04:00 DC 10/01/17 03:18 55 MLS/HR Allergies Allergies Allergies Coded Allergies Type Severity Reaction Last Updated Verified Penicillins Allergy Intermediate 04/16/17 Yes aspirin Allergy Intermediate 03/22/17 Yes Physical Exam Physical Exam Constitutional: , moderately acute distress, non-toxic appearance. [] HENT: Normocephalic, atraumatic, bilateral external ears normal, oropharynx moist, no oral exudates, nose normal. [] Eyes: PERRLA, EOMI, conjunctiva normal, no discharge. [] Neck: Normal range of motion, no tenderness, supple, no stridor. [] Cardiovascular:Heart rate regular rhythm, no murmur [] Lungs & Thorax: Bilateral breath sounds clear to auscultation [] Abdomen: Bowel sounds normal, soft, mild epigastric tenderness, no masses, no pulsatile masses. [] Obese. Old surgery scar. Skin: Warm, dry, no erythema, no rash. [] Back: No tenderness, no CVA tenderness. [] Extremities: No tenderness, no cyanosis, no clubbing, ROM intact, no edema. [] Neurologic: Alert and oriented X 3, normal motor function, normal sensory function, no focal deficits noted. []DTRs are +2 at patella and brachial. Balloon Pilot equal. Psychologic: Affect normal, judgement normal, mood normal. [] Current Patient Data Lab Results Laboratory Tests Test 09/30/17 22:52 09/30/17 23:44 10/01/17 00:15 POC Urine HCG, Qualitative hcg negative (Negative) Urine Collection Type Unknown Urine Color Yellow Urine Clarity Clear Urine pH 6.0 Urine Specific [place] 1.025 Urine Protein Neg (NEG-TRACE) Urine Glucose (UA) Neg mg/dL (NEG) Urine Ketones (Stick) Neg mg/dL (NEG) Urine Blood Mod (NEG) Urine Nitrite Neg (NEG) Urine Bilirubin Neg (NEG) Urine Urobilinogen Dipstick 1 mg/dL (0.2 mg/dL) Urine Leukocyte Esterase Neg (NEG) Urine RBC 0 /HPF (0-2) Urine WBC Occ /HPF (0-4) Urine Squamous Epithelial Cells Many /LPF Urine Bacteria Few /HPF (0-FEW) Urine Opiates Screen Neg (NEG) Urine Methadone Screen Neg (NEG) Urine Barbiturates Neg (NEG) Urine Phencyclidine Screen Neg (NEG) Urine Amphetamine/Methamphetamine Neg (NEG) Urine Benzodiazepines Screen Neg (NEG) Urine Cocaine Screen Neg (NEG) Urine Cannabinoids Screen Neg (NEG) Urine Ethyl Alcohol Neg (NEG) White Blood Count 7.1 x10^3/uL (4.0-11.0) Red Blood Count 3.91 x10^6/uL (3.50-5.40) Hemoglobin 12.2 g/dL (12.0-15.5) Hematocrit 35.6 % (36.0-47.0) L Mean Corpuscular Volume 91 fL (79-100) Mean Corpuscular Hemoglobin 31 pg (25-35) Mean Corpuscular Hemoglobin Concent 34 g/dL (31-37) Red Cell Distribution Width 15.5 % (11.5-14.5) H Platelet Count 179 x10^3/uL (140-400) Neutrophils (%) (Auto) 52 % (31-73) Lymphocytes (%) (Auto) 40 % (24-48) Monocytes (%) (Auto) 5 % (0-9) Eosinophils (%) (Auto) 3 % (0-3) Basophils (%) (Auto) 1 % (0-3) Neutrophils # (Auto) 3.7 x10^3uL (1.8-7.7) Lymphocytes # (Auto) 2.8 x10^3/uL (1.0-4.8) Monocytes # (Auto) 0.4 x10^3/uL (0.0-1.1) Eosinophils # (Auto) 0.2 x10^3/uL (0.0-0.7) Basophils # (Auto) 0.0 x10^3/uL (0.0-0.2) Prothrombin Time 9.5 SEC (9.4-11.4) Prothrombin Time INR 0.9 (0.9-1.1) PTT 24 SEC (23-33) Sodium Level 142 mmol/L (136-145) Potassium Level 3.6 mmol/L (3.5-5.1) Chloride Level 106 mmol/L (98-107) Carbon Dioxide Level 23 mmol/L (21-32) Anion Gap 13 (6-14) Blood Urea Nitrogen 11 mg/dL (7-20) Creatinine 1.0 mg/dL (0.6-1.0) Estimated GFR (Cockcroft-Gault) 66.0 Glucose Level 94 mg/dL (70-99) Calcium Level 8.9 mg/dL (8.5-10.1) Total Bilirubin 0.1 mg/dL (0.2-1.0) L Direct Bilirubin < 0.1 mg/dL (0.0-0.2) Aspartate Amino Transferase (AST) 10 U/L (15-37) L Alanine Aminotransferase (ALT) 13 U/L (14-59) L Alkaline Phosphatase 47 U/L (46-116) Troponin I Quantitative < 0.017 ng/mL (0-0.055) Total Protein 7.0 g/dL (6.4-8.2) Albumin 3.3 g/dL (3.4-5.0) L Lipase 196 U/L (73-393) Valproic Acid Level 53 mcg/mL (50-100) Valproic Acid Last Dose Date Unknown Valproic Acid Last Dose Time Unknown EKG EKG My interpretation EKG shows a sinus rhythm at 76 bpm. No findings of acute STEMI with contralateral changes. No acute morphology.[] Radiology/Procedures Radiology/Procedures My interpretation of acute abdomen shows no acute cardiopulmonary findings. Does have clips from previous gallbladder surgery. Nonspecific bowel gas pattern.[] Course & Med Decision Making Course & Med Decision Making Pertinent Labs and Imaging studies reviewed. (See chart for details). Patient remain on a clear fluid diet for the next 2 days. No solids or milk products. Push clear fluids. Take Depakote as previous directed. Follow-up primary care. No driving until released by primary. Return if any concerns. [] Final Impression Final Impression 1. Nausea and vomiting 2. Sub-Therapeutic valproic level[] 3. History of seizure disorder Problems: Dragon Disclaimer Dragon Disclaimer This electronic medical record was generated, in whole or in part, using a voice recognition dictation system. RACHEL YANCEY MD Sep 30, 2017 23:35
[2017-09-30] MEDS ORDERED: ONDANSETRON PF 4 MG/2 ML VIAL. IV ONE (23:45)
[2017-09-30] MEDS ORDERED: FAMOTIDINE 20 MG/2 ML VIAL IVP ONE (23:45)
[2017-10-01 00:17] LABS: BARBITURATES NEG (NEG); BENZODIAZEPINES NEG (NEG); CANNABINOIDS NEG (NEG); COCAINE NEG (NEG); METHADONE NEG (NEG); OPIATES NEG (NEG); PHENCYCLIDINE NEG (NEG)
[2017-10-01 00:20] LABS: BILIRUBIN,URINE NEG (NEG); CLARITY,URINE CLEAR; COLOR,URINE YELLOW; GLUCOSE,URINE NEG (NEG)
[2017-10-01 00:21] LABS: BACTERIA,URINE FEW /HPF (0-FEW); NITRITE,URINE NEG (NEG); RBC,URINE 0 /HPF (0-2); SQUAMOUS EPITHELIAL CELL,UR MANY /LPF; UROBILINOGEN,URINE 1 mg/dL (0.2 mg/dL); WBC,URINE OCC /HPF (0-4)
[2017-10-01 00:27] LABS: AMPHETAMINE/METHAMPHETAMINE NEG (NEG)
--- NOTE | 2017-10-01 00:44 | EKG ---
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
[2017-10-01 00:51] LABS: BASO % 1 % (0-3); EOS # 0.2 x10^3/uL (0.0-0.7); EOS % 3 % (0-3); HEMATOCRIT 35.6 % (36.0-47.0); HEMOGLOBIN 12.2 g/dL (12.0-15.5); LYMPH # 2.8 x10^3/uL (1.0-4.8); LYMPH % 40 % (24-48); MEAN CORPUSCULAR HEMOGLOBIN 31 pg (25-35); MEAN CORPUSCULAR HGB CONC 34 g/dL (31-37); MEAN CORPUSCULAR VOLUME 91 fL (79-100); MONO # 0.4 x10^3/uL (0.0-1.1); MONO % 5 % (0-9); NEUT # 3.7 x10^3uL (1.8-7.7); NEUT % 52 % (31-73); PLATELET COUNT 179 x10^3/uL (140-400); RED BLOOD COUNT 3.91 x10^6/uL (3.50-5.40); RED CELL DISTRIBUTION WIDTH 15.5 % (11.5-14.5); WHITE BLOOD COUNT 7.1 x10^3/uL (4.0-11.0)
[2017-10-01 01:03] LABS: ALBUMIN 3.3 g/dL (3.4-5.0); ALK PHOS 47 U/L (46-116); ALT (SGPT) 13 U/L (14-59); ANION GAP 13 (6-14); AST (SGOT) 10 U/L (15-37); BLOOD UREA NITROGEN 11 mg/dL (7-20); CALCIUM 8.9 mg/dL (8.5-10.1); CARBON DIOXIDE 23 mmol/L (21-32); CHLORIDE 106 mmol/L (98-107); GLUCOSE 94 mg/dL (70-99); LIPASE 196 U/L (73-393); POTASSIUM 3.6 mmol/L (3.5-5.1); SODIUM 142 mmol/L (136-145); TOTAL BILIRUBIN 0.1 mg/dL (0.2-1.0)
[2017-10-01 01:09] LABS: DIRECT BILIRUBIN < 0.1 mg/dL (0.0-0.2); VAL ACID 53 mcg/mL (50-100)
[2017-10-01] MEDS ORDERED: IV NORMAL SALINE 50ML 50 ML ONE (02:52)
[2017-10-01] MEDS ORDERED: VALPROATE SODIUM 500 MG/5 ML VIAL IV ONE (02:53)
[2017-10-01] MEDS ORDERED: VALPROATE SODIUM 500 MG in IV NORMAL SALINE 50ML 50 ML IV ONE (03:00)
[2017-10-01 04:15] VITALS: BP 104/56
--- NOTE | 2017-10-01 07:33 | RAD ---
Acute abdomen series with chest, 3 views, 09/30/2017: Abdominal pain, nausea and vomiting The abdominal gas pattern is unremarkable without evidence of obstruction. There is a moderate amount of stool in the right colon. No free air seen in the abdomen. Surgical clips are present right upper quadrant. There is no evidence of organomegaly The heart size is normal. The lungs are clear. There is no evidence of pleural fluid. IMPRESSION: No acute abdominal abnormality is detected.
[2017-10-01] MEDS ORDERED: IV RINGERS SOLUTION,LACTATED 1,000 ML IV SCH (23:45)
== END 2017-10-01 04:23 | disposition home or self-care (01) ==
LOC: ER 23:31
DX: R11.2 Nausea with vomiting, unspecified (principal); R10.13 Epigastric pain; Z51.81 Encounter for therapeutic drug level monitoring; G40.909 Epilepsy, unspecified, not intractable, without status epilepticus; J45.909 Unspecified asthma, uncomplicated; K21.9 Gastro-esophageal reflux disease without esophagitis; F17.210 Nicotine dependence, cigarettes, uncomplicated; F12.10 Cannabis abuse, uncomplicated; F10.20 Alcohol dependence, uncomplicated; Z88.0 Allergy status to penicillin; Z88.6 Allergy status to analgesic agent
CPT/HCPCS: 36415; 74022; 80048; 80076; 80164; 80307; 81001; 81025; 83690; 84484; 85025; 85610; 85730; 93005; 96361; 96365; 96375; 99285; J2405; J3490; J7120; S0028; G0479

== ENCOUNTER 2017-10-22 16:31 | Emergency (ER) | payer OTHER ==
[~2017-10-22] VITALS: Ht 157.5 cm; Wt 82.1 kg
--- NOTE | 2017-10-22 16:48 | ED.ADGEN ---
Past History Past Medical History: Asthma, GERD, Ovarian Cyst, Seizure (RAF PETE DO) Past Surgical History: Cholecystectomy, Other (RAF PETE DO) Smoking: Cigarettes, Greater than 1 pack/day Alcohol Use: Heavy Drug Use: Marijuana (RAF PETE DO) Adult General Chief Complaint Chief Complaint "I just don't feel well, I feel as though ongoing to have a seizure" (RAF PETE DO) HPI HPI Patient is a tebq-jnpq-yib female with history of seizure disorder who presents with multiple symptoms. States she feels uneasy, mild headache, nausea and dizzy. Also reports sore throat. No vomiting. No change in vision, no chest pain palpitations shortness breath. Over fever chills. Patient states she has had similar symptoms prior to previous seizures. She is compliant with her seizure medication and recently increased dose and switch from short acting to long-acting medication.last menstrual period was 3 weeks ago. Patient is not currently on control was concern for possible . No other acute symptoms or complaints. [] (RAF PETE DO) Review of Systems Review of Systems Review symptoms as per history of present illness. All other review symptoms are negative. [] All other systems were reviewed and found to be within normal limits, except as documented in this note. (RAF PETE DO) Current Medications Current Medications Current Medications Medications (Trade) Dose Ordered Sig/Silvana Start Time Stop Time Status Last Admin Dose Admin Dexamethasone Sodium Phosphate (Decadron) 10 mg 1X ONCE 10/22/17 19:00 10/22/17 19:01 DC 10/22/17 19:01 10 MG Ibuprofen (Motrin) 800 mg 1X ONCE 10/22/17 19:00 10/22/17 19:01 DC 10/22/17 19:00 800 MG Sodium Chloride 1,000 ml @ 1,000 mls/hr 1X ONCE 10/22/17 17:00 10/22/17 17:59 DC 10/22/17 17:18 1,000 MLS/HR (NIRANJAN BARAJAS DO) Allergies Allergies Allergies Coded Allergies Type Severity Reaction Last Updated Verified Penicillins Allergy Intermediate 10/22/17 Yes aspirin Allergy Intermediate 10/22/17 Yes (NIRANJAN BARAJAS DO) Physical Exam Physical Exam Constitutional: Well developed, well nourished, no acute distress, non-toxic appearance. [] HENT: Normocephalic, atraumatic, bilateral external ears normal, oropharynx moist, no oral exudates, nose normal. [] Eyes: PERRLA, EOMI, conjunctiva normal, no discharge. [] Neck: Normal range of motion, no tenderness, supple, no stridor. [] Cardiovascular:Heart rate regular rhythm, no murmur [] Lungs & Thorax: Bilateral breath sounds clear to auscultation [] Abdomen: Bowel sounds normal, soft, no tenderness. [] Skin: Warm, dry, no erythema, no rash. [] Back: No tenderness, no CVA tenderness. [] Extremities: No tenderness, no cyanosis, no clubbing, ROM intact, no edema. [] Neurologic: Alert and orientedX3 normal motor function, normal sensory function , no focal deficits noted. [] Psychologic: Affect normal, judgement normal, mood normal. [] (RAF PETE DO) Current Patient Data Vital Signs Vital Signs Date Time Temp Pulse Resp B/P (MAP) Pulse Ox O2 Delivery O2 Flow Rate FiO2 10/22/17 17:37 76 18 112/61 (78) 99 Room Air 10/22/17 16:31 98.0 (NIRANJAN BARAJAS DO) Lab Results Laboratory Tests Test 10/22/17 17:00 10/22/17 17:06 10/22/17 18:10 10/22/17 18:49 Urine Collection Type Unknown Urine Color Yellow Urine Clarity [place] Urine pH 7.0 Urine Specific [place] 1.015 Urine Protein Neg (NEG-TRACE) Urine Glucose (UA) Neg mg/dL (NEG) Urine Ketones (Stick) Neg mg/dL (NEG) Urine Blood Mod (NEG) Urine Nitrite Neg (NEG) Urine Bilirubin Neg (NEG) Urine Urobilinogen Dipstick 0.2 mg/dL (0.2 mg/dL) Urine Leukocyte Esterase Large (NEG) Urine RBC 1-2 /HPF (0-2) Urine WBC 11-20 /HPF (0-4) Urine Squamous Epithelial Cells Many /LPF Urine Bacteria Few /HPF (0-FEW) White Blood Count 7.7 x10^3/uL (4.0-11.0) Red Blood Count 4.61 x10^6/uL (3.50-5.40) Hemoglobin 14.5 g/dL (12.0-15.5) Hematocrit 41.9 % (36.0-47.0) Mean Corpuscular Volume 91 fL (79-100) Mean Corpuscular Hemoglobin 32 pg (25-35) Mean Corpuscular Hemoglobin Concent 35 g/dL (31-37) Red Cell Distribution Width 14.7 % (11.5-14.5) H Platelet Count 158 x10^3/uL (140-400) Neutrophils (%) (Auto) 61 % (31-73) Lymphocytes (%) (Auto) 32 % (24-48) Monocytes (%) (Auto) 6 % (0-9) Eosinophils (%) (Auto) 1 % (0-3) Basophils (%) (Auto) 1 % (0-3) Neutrophils # (Auto) 4.6 x10^3uL (1.8-7.7) Lymphocytes # (Auto) 2.5 x10^3/uL (1.0-4.8) Monocytes # (Auto) 0.4 x10^3/uL (0.0-1.1) Eosinophils # (Auto) 0.1 x10^3/uL (0.0-0.7) Basophils # (Auto) 0.0 x10^3/uL (0.0-0.2) Sodium Level 139 mmol/L (136-145) Potassium Level 3.8 mmol/L (3.5-5.1) Chloride Level 105 mmol/L (98-107) Carbon Dioxide Level 25 mmol/L (21-32) Anion Gap 9 (6-14) Blood Urea Nitrogen 7 mg/dL (7-20) Creatinine 0.7 mg/dL (0.6-1.0) Estimated GFR (Cockcroft-Gault) 99.6 BUN/Creatinine Ratio 10 (6-20) Glucose Level 90 mg/dL (70-99) Calcium Level 8.7 mg/dL (8.5-10.1) Total Bilirubin 0.1 mg/dL (0.2-1.0) L Aspartate Amino Transferase (AST) 9 U/L (15-37) L Alanine Aminotransferase (ALT) 14 U/L (14-59) Alkaline Phosphatase 52 U/L (46-116) Total Protein 6.7 g/dL (6.4-8.2) Albumin 3.2 g/dL (3.4-5.0) L Albumin/Globulin Ratio 0.9 (1.0-1.7) L Serum Test, Qualitative Negative (NEG) Valproic Acid Level 102 mcg/mL (50-100) H Valproic Acid Last Dose Date Unknown Valproic Acid Last Dose Time Unknown Group A Streptococcus Rapid Negative (NEGATIVE) (NIRANJAN BARAJAS DO) EKG EKG [] (RAF PETE DO) Radiology/Procedures Radiology/Procedures [] (RAF PETE DO) Course & Med Decision Making Course & Med Decision Making Pertinent Labs and Imaging studies reviewed. (See chart for details) [Labs ordered and reviewed. Symptoms address.] (RAF PETE DO) Course & Med Decision Making ED course: Patient was seen and examined initially by Dr. Pete who ordered the lab work and wanted to follow-up on lab work and reevaluate the patient. Patient was complaining of a sore throat therefore ordered a rapid strep which was negative and ordered the patient 10 mg Decadron with 800 modems of Motrin for her pain I updated the patient on blood work and reexamined the patient in which she was feeling much better and would like to go home. I recommended she follow up with a neurologist for further evaluation and management of her seizures. It was questionable the patient seizure today while driving therefore I recommended the patient not drive until she is cleared by her neurologist. MDM: After reviewing the chart, CC/HPI/PMH, physical exam, [lab results], I do not believe the patient has emergent medical condition warranting further workup and /or admission at this time. Patient has a known seizure disorder and is currently compliant with her antiseizure medication. I believe the patient has viral pharyngitis based off lab results and physical exam findings therefore do not believe the patient needs antibiotics at this time. I recommended short- term follow-up with her PCP and neurologist for further evaluation and management. Additional verbal discharge instructions were provided to the patient and that if symptoms get worse or any new symptoms arise that are worrisome to the patient she is to return to the emergency room immediately (NIRANJAN BARAJAS DO) Final Impression Final Impression [] Problems: (RAF PETE DO) Final Impression 1. Pharyngitis 2. Epilepsy Problems: (NIRANJAN BARAJAS DO) Dragon Disclaimer Dragon Disclaimer This electronic medical record was generated, in whole or in part, using a voice recognition dictation system. (RAF PETE DO) RAF PETE DO Oct 22, 2017 16:48 NIRANJAN BARAJAS DO Oct 22, 2017 19:37
[2017-10-22] MEDS ORDERED: IV NORMAL SALINE 1,000ML 1,000 ML IV ONE (17:00)
[2017-10-22 17:35] LABS: BASO % 1 % (0-3); EOS # 0.1 x10^3/uL (0.0-0.7); EOS % 1 % (0-3); HEMATOCRIT 41.9 % (36.0-47.0); HEMOGLOBIN 14.5 g/dL (12.0-15.5); LYMPH # 2.5 x10^3/uL (1.0-4.8); LYMPH % 32 % (24-48); MEAN CORPUSCULAR HEMOGLOBIN 32 pg (25-35); MEAN CORPUSCULAR HGB CONC 35 g/dL (31-37); MEAN CORPUSCULAR VOLUME 91 fL (79-100); MONO # 0.4 x10^3/uL (0.0-1.1); MONO % 6 % (0-9); NEUT # 4.6 x10^3uL (1.8-7.7); NEUT % 61 % (31-73); PLATELET COUNT 158 x10^3/uL (140-400); RED BLOOD COUNT 4.61 x10^6/uL (3.50-5.40); RED CELL DISTRIBUTION WIDTH 14.7 % (11.5-14.5); WHITE BLOOD COUNT 7.7 x10^3/uL (4.0-11.0)
[2017-10-22 18:17] LABS: BILIRUBIN,URINE NEG (NEG); CLARITY,URINE HAZY; COLOR,URINE YELLOW; GLUCOSE,URINE NEG (NEG)
[2017-10-22 18:18] LABS: BACTERIA,URINE FEW /HPF (0-FEW); NITRITE,URINE NEG (NEG); SQUAMOUS EPITHELIAL CELL,UR MANY /LPF; UROBILINOGEN,URINE 0.2 mg/dL (0.2 mg/dL)
[2017-10-22 18:51] LABS: ALBUMIN 3.2 g/dL (3.4-5.0); ALBUMIN/GLOBULIN RATIO 0.9 (1.0-1.7); ALK PHOS 52 U/L (46-116); ALT (SGPT) 14 U/L (14-59); ANION GAP 9 (6-14); AST (SGOT) 9 U/L (15-37); BLOOD UREA NITROGEN 7 mg/dL (7-20); BUN/CREATININE RATIO 10 (6-20); CALCIUM 8.7 mg/dL (8.5-10.1); CARBON DIOXIDE 25 mmol/L (21-32); CHLORIDE 105 mmol/L (98-107); CREATININE 0.7 mg/dL (0.6-1.0); GFR 99.6; GLUCOSE 90 mg/dL (70-99); POTASSIUM 3.8 mmol/L (3.5-5.1); SODIUM 139 mmol/L (136-145); TOTAL BILIRUBIN 0.1 mg/dL (0.2-1.0); TOTAL PROTEIN 6.7 g/dL (6.4-8.2); VAL ACID 102 mcg/mL (50-100)
[2017-10-22] MEDS ORDERED: DEXAMETHASONE SOD PHOS 10 MG/ML VIAL IV ONE (19:00)
[2017-10-22] MEDS ORDERED: IBUPROFEN 800 MG TABLET. PO ONE (19:00)
[2017-10-22 19:02] LABS: PREG TEST PT QUAL NEGATIVE (NEG)
[2017-10-22 19:40] VITALS: BP 101/60
== END 2017-10-22 19:42 | disposition home or self-care (01) ==
LOC: ER 16:31
DX: J02.9 Acute pharyngitis, unspecified (principal); G40.909 Epilepsy, unspecified, not intractable, without status epilepticus; R51 Headache; J45.909 Unspecified asthma, uncomplicated; K21.9 Gastro-esophageal reflux disease without esophagitis; F17.210 Nicotine dependence, cigarettes, uncomplicated; F12.10 Cannabis abuse, uncomplicated; F10.20 Alcohol dependence, uncomplicated; Z88.0 Allergy status to penicillin; Z88.6 Allergy status to analgesic agent
CPT/HCPCS: 36415; 80053; 80164; 81001; 84703; 85025; 87070; 87086; 87186; 87880; 96361; 96374; 99284; J1100; J7030